=== PATIENT | female | born 1970 | race Two or more races ===

== ENCOUNTER 2019-12-06 15:14 | Outpatient (REF) | payer OTHER, SELFPAY ==
--- NOTE | 2019-12-06 15:18 | MM_ITS ---
EXAMINATION: MM SCREENING DIGITAL BREAST TOMOSYNTHESIS, BILATERAL CLINICAL INFORMATION: Screening. Asymptomatic. Benign right ultrasound-guided biopsy 10/31/2017 (fibroadenoma). The lifetime risk of breast cancer based on the Tyrer-Cuzick Model is 9%. COMPARISON: Mammography: 11/30/2018, 10/31/2017, 10/17/2017, 12/04/2016 TECHNIQUE: Digital breast tomosynthesis is performed in both the craniocaudal and mediolateral oblique views along with computer-aided detection (CAD). Synthesized 2D images are generated from the tomosynthesis. FINDINGS: There are scattered areas of fibroglandular density (ACR BI-RADS breast composition Category b). Breast tissue composition borders on heterogeneously dense. There are scattered bilateral asymmetries and probable underlying fibrocystic changes similar to prior exams. Biopsy clip marker present anterior upper outer right breast. There is no significant mass or architectural abnormality, or abnormal calcifications. The axilla and skin contours are unremarkable. MM/MM tomosynthesis screening BI IMPRESSION: No significant changes from prior studies. ASSESSMENT: BI-RADS 2: Benign RECOMMENDATION: Routine annual mammography screening. This patient's information was entered into a reminder system with a target due date for their next mammogram.
== END 2019-12-06 15:15 | disposition home or self-care (01) ==
LOC: HO.MAMMO 15:14
PROVIDERS: PCP Internal Medicine; Visit Provider Internal Medicine
DX: Z12.31 Encounter for screening mammogram for malignant neoplasm of breast (principal)
CPT/HCPCS: 77063; 77067

== ENCOUNTER 2019-12-28 12:56 | Outpatient (REF) | payer OTHER, SELFPAY ==
[2019-12-28 13:30] LABS: MANUAL DIFF FLAG NO
[2019-12-28 13:34] LABS: Basophils Percent Auto 0.5 % (0-2); Eosinophils Absolute Auto 0.1 X10*3/uL (0.0-0.4); Eosinophils Percent Auto 1.9 % (0-4); Hematocrit 37.7 % (37-47); Hemoglobin 12.4 g/dl (12.0-16.0); Imm Gran Abs Auto 0.02 X10*3/uL (0.00-0.03); Imm Gran Pct Auto 0.3 % (0.0-0.4); Lymphocytes Absolute Auto 1.7 X10*3/uL (1.2-4.9); Lymphocytes Percent Auto 26.8 % (20-40); Mean Corpuscular HGB Conc 32.9 g/dl (31.0-35.0); Mean Corpuscular Hemoglobin 28.5 pg (27.0-33.0); Mean Corpuscular Volume 86.7 fL (80-98); Mean Platelet Volume 8.6 fL (9.4-12.3); Monocytes Absolute Auto 0.4 X10*3/uL (0.1-1.2); Monocytes Percent Auto 5.8 % (2-11); Neutrophils Percent Auto 64.7 % (45-73); Platelet Count 307 X10*3/uL (160-400); Red Blood Count 4.35 X10*6/uL (4.20-5.50); Red Cell Distribution Width 12.1 % (11.0-16.0); White Blood Count 6.2 X10*3/uL (4.8-10.8)
[2019-12-28 14:20] LABS: Alanine Aminotransferase 19 U/L (0-31); Albumin Level 4.3 g/dL (3.5-5.0); Alkaline Phosphatase 51 U/L (39-117); Anion Gap 12 (12-20); Aspartate Amino Transferase 21 U/L (5-31); Bilirubin Total 0.9 mg/dL (0.0-1.0); Blood Urea Nitrogen 9 mg/dL (9-16); Calcium 8.7 mg/dL (8.4-10.2); Carbon Dioxide 27 mmol/L (22-29); Chloride 103 mmol/L (96-108); Cholesterol 179 mg/dL; Estimated Glomerular Filt Rate > 60; Glucose Fasting 75 mg/dL (60-99); HDL Cholesterol 47 mg/dL; LDL Cholesterol Calculated 117 mg/dl; Sodium 138 mmol/L (135-145); Total Protein 7.3 g/dL (6.5-8.0); Triglycerides 75 mg/dL
[2019-12-28 14:23] LABS: TSH reflex Free T4 1.04 mIU/mL (0.32-4.0); Vitamin D 25-OH Total 8.4 ng/mL (>30)
[2019-12-28 15:12] LABS: Folate 12.5 ng/mL (> or = 4.0); Vitamin B12 779 pg/mL (200-900)
== END 2019-12-28 12:57 | disposition home or self-care (01) ==
LOC: HO.LAB 12:56
PROVIDERS: PCP Internal Medicine; Visit Provider Internal Medicine
DX: R00.0 Tachycardia, unspecified (principal); R53.82 Chronic fatigue, unspecified
CPT/HCPCS: 36415; 80053; 80061; 82306; 82607; 82746; 84443; 85025

== ENCOUNTER 2020-01-25 17:15 | Outpatient (REF) | payer OTHER, SELFPAY | END 2020-01-25 17:16 | disposition home or self-care (01) | LOC: HO.LAB 17:15 | PROVIDERS: PCP Internal Medicine; Visit Provider Internal Medicine | DX: Z20.828 Contact with and (suspected) exposure to other viral communicable diseases (principal) | CPT/HCPCS: C9803; U0003 ==

== ENCOUNTER 2020-12-13 12:11 | Outpatient (REF) | payer OTHER, SELFPAY ==
--- NOTE | ~2020-12-13 | MM_ITS ---
EXAMINATION: MM SCREENING DIGITAL BREAST TOMOSYNTHESIS, BILATERAL CLINICAL INFORMATION: Screening. Asymptomatic. Right breast biopsy 2018 (fibroadenoma). Prior remote bilateral reduction mammoplasty, 2004. The lifetime risk of breast cancer based on the Tyrer-Cuzick Model is 16%. COMPARISON: Mammography: 12/06/2019, 11/30/2018, 10/31/2017, 10/17/2017, targeted left breast ultrasound 12/11/2018 TECHNIQUE: Digital breast tomosynthesis is performed in both the craniocaudal and mediolateral oblique views along with computer-aided detection (CAD). Synthesized 2D images are generated from the tomosynthesis. FINDINGS: There are scattered areas of fibroglandular density (ACR BI-RADS breast composition Category b). Breast tissue composition borders on heterogeneously dense. Parenchymal pattern is similar to prior studies. There is biopsy clip marker again seen mid upper outer right breast. There are interval benign tightly grouped coarse calcifications mid upper outer left breast. Some fine vascular calcifications again seen anterior right breast. Skin contours are smooth. No significant changes. MM/MM tomosynthesis screening BI IMPRESSION: No mammographic evidence of malignancy. ASSESSMENT: BI-RADS 2: Benign RECOMMENDATION: Routine annual mammography screening. This patient's information was entered into a reminder system with a target due date for their next mammogram.
== END 2020-12-13 12:12 | disposition home or self-care (01) ==
LOC: HO.MAMMO 12:11
PROVIDERS: PCP Internal Medicine; Visit Provider Internal Medicine
DX: Z12.31 Encounter for screening mammogram for malignant neoplasm of breast (principal)
CPT/HCPCS: 77063; 77067

== ENCOUNTER 2020-12-19 06:23 | Outpatient (REF) | payer OTHER, SELFPAY ==
[2020-12-19 06:36] LABS: MANUAL DIFF FLAG NO
--- NOTE | 2020-12-19 06:41 | ECG_ITS ---
Test Reason : pre op Blood Pressure : / mmHG Vent. Rate : 063 BPM Atrial Rate : 063 BPM P-R Int : 160 ms QRS Dur : 078 ms QT Int : 410 ms P-R-T Axes : 039 011 018 degrees QTc Int : 419 ms Normal sinus rhythm Normal ECG No significant changes seen Referred By: Raine Mia Electronically Signed By:KEY HARLEY MD
[2020-12-19 07:28] LABS: Basophils Percent Auto 0.9 % (0-2); Eosinophils Absolute Auto 0.1 X10*3/uL (0.0-0.4); Eosinophils Percent Auto 3.3 % (0-4); Hematocrit 40.6 % (37.0-47.0); Hemoglobin 13.7 g/dl (12.0-16.0); Imm Gran Abs Auto 0.01 X10*3/uL (0.00-0.03); Imm Gran Pct Auto 0.2 % (0.0-0.4); Lymphocytes Absolute Auto 1.6 X10*3/uL (1.2-4.9); Lymphocytes Percent Auto 38.2 % (20-40); Mean Corpuscular HGB Conc 33.7 g/dl (31.0-35.0); Mean Corpuscular Hemoglobin 29.3 pg (27.0-33.0); Mean Corpuscular Volume 86.9 fL (80.0-98.0); Mean Platelet Volume 9.4 fL (9.4-12.3); Monocytes Absolute Auto 0.3 X10*3/uL (0.1-1.2); Monocytes Percent Auto 5.9 % (2-11); Neutrophils Absolute Auto 2.2 x10*3/uL (2.0-8.3); Neutrophils Percent Auto 51.5 % (45-73); Platelet Count 266 X10*3/uL (160-400); Red Blood Count 4.67 X10*6/uL (4.20-5.50); Red Cell Distribution Width 12.3 % (11.0-16.0); White Blood Count 4.2 X10*3/uL (4.8-10.8)
[2020-12-19 07:38] LABS: INTERNATIONAL NORM RATIO 1.1 (0.9-1.1); Prothrombin Time 12.2 SEC (9.9-13.0)
[2020-12-19 07:41] LABS: Partial Thromboplastin Time 32.5 SEC (24.1-38.0)
[2020-12-19 08:15] LABS: Alanine Aminotransferase 20 U/L (0-31); Albumin Level 4.3 g/dL (3.5-5.0); Alkaline Phosphatase 54 U/L (39-117); Anion Gap 9 (12-20); Aspartate Amino Transferase 20 U/L (5-31); Bilirubin Total 0.7 mg/dL (0.0-1.0); Blood Urea Nitrogen 10 mg/dL (9-16); Calcium 9.5 mg/dL (8.4-10.2); Carbon Dioxide 30 mmol/L (22-29); Chloride 103 mmol/L (96-108); Cholesterol 207 mg/dL; Estimated Glomerular Filt Rate > 60; Glucose Fasting 84 mg/dL (60-99); HDL Cholesterol 46 mg/dL; LDL Cholesterol Calculated 129 mg/dl; Sodium 138 mmol/L (135-145); Total Protein 7.7 g/dL (6.5-8.0); Triglycerides 164 mg/dL
[2020-12-19 08:17] LABS: Estimated Average Glucose 100 mg/dL; Hemoglobin A1c % 5.1 %
[2020-12-19 08:22] LABS: HCG Quantitative < 2 mIU/mL; Thyroid Stimulating Hormone 2.33 uIU/mL (0.32-4.0)
[2020-12-19 09:06] LABS: Appearance Urine CLEAR; Color Urine STRAW; Glucose Urine UA NEG (NEG); Leukocyte Esterase Urine NEG (NEG); Nitrite Urine NEG (NEG); PH 5.5 (5.0-8.0); Urine Blood NEG (NEG); Urine Ketones NEG (NEG); Urine Protein NEG (NEG-TRACE)
[2020-12-20 09:10] LABS: HIV AB/AG Nonreactive (Nonreactive); HIV Num 1 0.07 S/CO (0.00-0.99)
[2020-12-23 14:51] LABS: Vitamin D 25-OH, D2 <4 ng/mL; Vitamin D 25-OH, D3 20 ng/mL; Vitamin D 25-OH, Total 20 ng/mL (30-100)
== END 2020-12-19 06:24 | disposition home or self-care (01) ==
LOC: HO.LAB 06:23
PROVIDERS: PCP Internal Medicine; Visit Provider Internal Medicine
DX: Z01.818 Encounter for other preprocedural examination (principal); Z11.4 Encounter for screening for human immunodeficiency virus [HIV]; E66.3 Overweight; D64.9 Anemia, unspecified; E78.5 Hyperlipidemia, unspecified; E55.9 Vitamin D deficiency, unspecified; E11.40 Type 2 diabetes mellitus with diabetic neuropathy, unspecified
CPT/HCPCS: 36415; 80053; 80061; 81003; 82306; 83036; 84443; 84702; 85025; 85610; 85730; 87389; 93005

== ENCOUNTER 2020-12-27 05:57 | Outpatient (REF) | payer OTHER, SELFPAY ==
[2020-12-27 06:07] LABS: MANUAL DIFF FLAG NO
[2020-12-27 07:19] LABS: Basophils Percent Auto 0.6 % (0-2); Eosinophils Absolute Auto 0.1 X10*3/uL (0.0-0.4); Eosinophils Percent Auto 2.5 % (0-4); Hematocrit 38.8 % (37.0-47.0); Hemoglobin 13.1 g/dl (12.0-16.0); Imm Gran Abs Auto 0.01 X10*3/uL (0.00-0.03); Imm Gran Pct Auto 0.2 % (0.0-0.4); Lymphocytes Absolute Auto 1.7 X10*3/uL (1.2-4.9); Lymphocytes Percent Auto 34.6 % (20-40); Mean Corpuscular HGB Conc 33.8 g/dl (31.0-35.0); Mean Corpuscular Hemoglobin 29.3 pg (27.0-33.0); Mean Corpuscular Volume 86.8 fL (80.0-98.0); Mean Platelet Volume 8.8 fL (9.4-12.3); Monocytes Absolute Auto 0.3 X10*3/uL (0.1-1.2); Monocytes Percent Auto 7.1 % (2-11); Neutrophils Absolute Auto 2.6 x10*3/uL (2.0-8.3); Platelet Count 307 X10*3/uL (160-400); Red Blood Count 4.47 X10*6/uL (4.20-5.50); Red Cell Distribution Width 12.1 % (11.0-16.0); White Blood Count 4.8 X10*3/uL (4.8-10.8)
[2020-12-27 07:49] LABS: Alanine Aminotransferase 26 U/L (0-31); Albumin Level 4.4 g/dL (3.5-5.0); Alkaline Phosphatase 58 U/L (39-117); Anion Gap 9 (12-20); Aspartate Amino Transferase 23 U/L (5-31); Bilirubin Total 0.9 mg/dL (0.0-1.0); Blood Urea Nitrogen 10 mg/dL (9-16); Calcium 9.6 mg/dL (8.4-10.2); Carbon Dioxide 31 mmol/L (22-29); Chloride 102 mmol/L (96-108); Estimated Glomerular Filt Rate > 60; Glucose Fasting 90 mg/dL (60-99); Potassium 4.3 mmol/L (3.3-5.1); Sodium 138 mmol/L (135-145); Total Protein 7.5 g/dL (6.5-8.0)
== END 2020-12-27 05:58 | disposition home or self-care (01) ==
LOC: HO.LAB 05:57
PROVIDERS: PCP Internal Medicine; Visit Provider Internal Medicine
DX: Z13.89 Encounter for screening for other disorder (principal)
CPT/HCPCS: 36415; 80053; 85025

== ENCOUNTER 2021-05-03 12:40 | Emergency (ER) | payer OTHER, SELFPAY ==
[2021-05-03 13:00] VITALS: BP 104/69; PULSE 85; RESP 18; TEMP 37.1; O2SAT 97; BMI 28.3
[2021-05-03 16:14] LABS: MANUAL DIFF FLAG NO
[2021-05-03 16:16] LABS: Appearance Urine CLEAR; Color Urine YELLOW; Glucose Urine UA NEG (NEG); Leukocyte Esterase Urine NEG (NEG); Nitrite Urine NEG (NEG); Specific Gravity - Urine 1.015 (1.005-1.025); UACC Culture Trigger NO; Urine Blood 2+ (NEG); Urine Ketones 5 MG/DL (NEG); Urine Protein NEG (NEG-TRACE)
[2021-05-03 16:20] LABS: Basophils Percent Auto 0.4 % (0-2); Eosinophils Absolute Auto 0.1 X10*3/uL (0.0-0.4); Eosinophils Percent Auto 1.7 % (0-4); Hematocrit 41.2 % (37.0-47.0); Hemoglobin 13.4 g/dl (12.0-16.0); Imm Gran Abs Auto 0.01 X10*3/uL (0.00-0.03); Imm Gran Pct Auto 0.2 % (0.0-0.4); Lymphocytes Absolute Auto 1.1 X10*3/uL (1.2-4.9); Lymphocytes Percent Auto 21.2 % (20-40); Mean Corpuscular HGB Conc 32.5 g/dl (31.0-35.0); Mean Corpuscular Hemoglobin 26.9 pg (27.0-33.0); Mean Corpuscular Volume 82.7 fL (80.0-98.0); Mean Platelet Volume 8.4 fL (9.4-12.3); Monocytes Absolute Auto 0.4 X10*3/uL (0.1-1.2); Monocytes Percent Auto 7.5 % (2-11); Neutrophils Absolute Auto 3.6 x10*3/uL (2.0-8.3); Platelet Count 300 X10*3/uL (160-400); Red Blood Count 4.98 X10*6/uL (4.20-5.50); Red Cell Distribution Width 12.9 % (11.0-16.0); White Blood Count 5.2 X10*3/uL (4.8-10.8)
[2021-05-03 16:29] LABS: Anion Gap 12 (12-20); Blood Urea Nitrogen 14 mg/dL (9-16); Calcium 9.1 mg/dL (8.4-10.2); Carbon Dioxide 29 mmol/L (22-29); Chloride 100 mmol/L (96-108); Creatinine Clr Calc Pharmacy 84.2; Estimated Glomerular Filt Rate > 60; Glucose Random 75 mg/dL (60-115); Potassium 3.5 mmol/L (3.3-5.1); Sodium 137 mmol/L (135-145)
[2021-05-03 16:31] LABS: COVID-19 Test Negative (Negative)
[2021-05-03 16:41] LABS: Bacteria Urine TRACE /LPF; RBC Urine 0-2 /HPF (0); Squamous Epithelial Cell Urine TRACE /LPF; WBC Urine 0 /HPF (0-4)
--- NOTE | 2021-05-03 16:51 | ED_ITS ---
HPI - General Adult General Chief complaint: Nausea/Vomiting/Diarrhea Stated complaint: Vomiting, Abdominal Pain, Chills Time Seen by Provider: 05/03/21 16:38 Source: patient Limitations: no limitations History of Present Illness HPI narrative: This is a 50-year-old female who complains of vomiting since last night but the patient denies any diarrhea. She has some upper abdominal pain. She denies any alcohol use. She denies fever. She has not had any chest pain or shortness of breath. She denies any difficulty with urination, dysuria, urinary frequency. She has been able to hold down some fluids today but no food. Related Data Home Medications Medication Instructions Recorded Confirmed clonidine HCl 0.1 mg tablet mg PO 01/03/20 12/20/20 cyclobenzaprine 10 mg tablet 10 mg PO BEDTIME 01/03/20 12/20/20 risperidone 1 mg tablet 1 mg PO BEDTIME 01/03/20 12/20/20 Previous Rx's Medication Instructions Recorded topiramate 50 mg tablet 50 mg PO BEDTIME 90 Days #90 tab 11/13/20 oxycodone-acetaminophen 5 mg-325 1 tab PO Q8H PRN 7 Days #21 tab 12/20/20 mg tablet (Percocet) ondansetron HCl 4 mg tablet 4 mg PO Q6H PRN #10 tab 05/03/21 Allergies Allergy/AdvReac Type Severity Reaction Status Date / Time aspirin [Aspirin] Allergy Intermediate HIVES, Verified 12/20/20 15:35 rash, swelling, SOB NSAIDS (Non-Steroidal Allergy Intermediate rash and Verified 12/20/20 15:35 Anti-Inflamma facial swelling Review of Systems Review of Systems: Yes all other systems are reviewed and are negative Constitutional: Constitutional: Reports as per HPI and Denies fever(s) Eyes: Eyes: Reports as per HPI and Reports no additional eye complaints ENT: Reports system reviewed and no additional complaints, except as documented, Reports as per HPI, Denies nasal congestion, Denies nasal discharge and Denies sore throat Cardiovascular: Cardiovascular: Reports as per HPI, Denies chest pain and Denies dyspnea Respiratory: Respiratory: Reports as per HPI, Denies cough and Denies dyspnea Gastrointestinal: Gastrointestinal: Reports as per HPI, Reports abdominal pain, Denies diarrhea, Reports nausea and Reports vomiting Genitourinary: Genitourinary: Reports as per HPI, Denies hematuria, Denies urinary frequency and Denies dysuria Musculoskeletal: Musculoskeletal: Reports no additional musculoskeletal complaints and Denies numbness Integumentary/Breasts: Skin/Breast: Reports as per HPI and Denies rash Neurologic: Reports as per HPI, Denies focal weakness and Denies numbness Psychiatric: Psychiatric: Reports no additional psychiatric complaints and Reports as per HPI Endocrine: Endocrine: Reports no additional endocrine complaints and Reports as per HPI Hematologic/Lymphatic: Hematologic/Lymphatic: Reports no additional hematolog ic/lymphatic complaints, Reports as per HPI and Reports other (No peripheral edema) [facility] Past Medical History Medical History (Updated 05/04/21 @ 00:03 by Background Faina) Anxiety Blurry vision Insomnia Migraines Mild recurrent major depression Overweight Pre-op evaluation Surgical History H/O bilateral breast reduction surgery History of abdominoplasty History of section History of foot surgery History of hysterectomy Family History Family History Father No problems noted. Mother Diabetes Hypertension Paternal Grandmother Cancer Paternal Aunt Cancer Paternal Uncle Cancer Social History Social History Housing: Apartment Alcohol intake: never Patient Tobacco Use Status: Never used Tobacco e-Cigarette/Vaping Use: Never Used Second Hand Smoke Exposure: No Use of substances other than those prescribed or required for medical reasons: No Advance Directives: No Advance Directives Information Provided: No service: No Current occupational status: unemployed Physical Exam ED Vital Signs: Vital Signs - 24 hr 05/03/21 13:00 05/03/21 17:12 Temperature 98.8 F 97.7 F Pulse Rate 85 67 Respiratory Rate 18 Blood Pressure 104/69 116/62 Pulse Oximetry 97 95 BMI result Body Mass Index 28.3 Const General: no acute distress Orientation/consciousness: patient oriented x3 HENMT Head: Yes normal to inspection General nose exam: Normal external nose present Mouth: moist mucous membranes Throat: Yes posterior oropharynx normal, Yes tonsils normal and Yes uvula midline Eyes Eyelids: Yes eyelids normal Conjunctivae: conjunctivae normal Pupils: Equal, round and reactive pupils present Neck Neck: Yes supple Resp Effort & Inspection: normal respiratory effort Auscultation: clear to auscultation bilaterally Cardio Rate: regular rate Rhythm: regular rhythm Heart sounds: S1 normal heart sound present, S2 normal heart sound present, no gallops, no murmurs and no rubs GI Inspection: No distended Palpation (GI): Soft to palpation and Tenderness to palpation present (GI) in the epigastrum Auscultation: normal bowel sounds Skin General skin exam: other (Warm and dry) Neuro General: patient oriented x3 and CN's II-XI intact bilaterally Cranial nerves: Yes Equal, round and reactive pupils present Extrem General: Yes no pedal edema Psych Affect: normal affect Attitude: cooperative Medical Decision Making MDM Narrative Medical decision making narrative: Patient with vomiting, but no diarrhea Patient was given Zofran in the ED and was able to hold down some fluids. Labs unremarkable with no evidence of dehydration. Patient is safe for outpatient treatment Lab Data Result diagrams: 05/03/21 16:06 05/03/21 16:06 Labs: Lab Results 05/03/21 05/03/21 05/03/21 Range/Units 16:06 16:06 16:06 WBC 5.2 (4.8-10.8) X10*3/uL RBC 4.98 (4.20-5.50) X10*6/uL Hgb 13.4 (12.0-16.0) g/dl Hct 41.2 (37.0-47.0) % MCV 82.7 (80.0-98.0) fL MCH 26.9 L (27.0-33.0) pg MCHC 32.5 (31.0-35.0) g/dl RDW 12.9 (11.0-16.0) % Plt Count 300 (160-400) X10*3/uL MPV 8.4 L (9.4-12.3) fL Immature Gran % (Auto) 0.2 (0.0-0.4) % Neut % (Auto) 69.0 (45-73) % Lymph % (Auto) 21.2 (20-40) % [place] % (Auto) 7.5 (2-11) % Eos % (Auto) 1.7 (0-4) % Baso % (Auto) 0.4 (0-2) % Lymph # (Auto) 1.1 L (1.2-4.9) X10*3/uL Cowley # (Auto) 0.4 (0.1-1.2) X10*3/uL Eos # (Auto) 0.1 (0.0-0.4) X10*3/uL Baso # (Auto) 0.0 (0.0-0.2) X10*3/uL Abs Immat Gran (auto) 0.01 (0.00-0.03) X10*3/uL Absolute Neuts (auto) 3.6 (2.0-8.3) x10*3/uL Absolute Nucleated RBC 0.000 (0.0-0.012) X10*3/uL Nucleated RBC % (auto) 0.0 (0.0-0.2) /100WBC Sodium 137 (135-145) mmol/L Potassium 3.5 (3.3-5.1) mmol/L Chloride 100 (96-108) mmol/L Carbon Dioxide 29 (22-29) mmol/L Anion Gap 12 (12-20) BUN 14 (9-16) mg/dL Creatinine 0.75 (0.5-1.4) mg/dL Estim Creat Clear Calc 84.2 Estimated GFR > 60 Random Glucose 75 (60-115) mg/dL Calcium 9.1 (8.4-10.2) mg/dL Lipase (8-78) U/L Urine Color Urine Appearance Urine pH (5.0-8.0) Ur Specific [place] (1.005-1.025) Urine Protein (NEG-TRACE) MG/DL Urine Glucose (UA) (NEG) MG/DL Urine Ketones (NEG) MG/DL Urine Blood (NEG) Urine Nitrite (NEG) Ur Leukocyte Esterase (NEG) Urine RBC (0) /HPF Urine WBC (0-4) /HPF Ur Squamous Epith Cells /LPF Urine Bacteria /LPF COVID-19 ([facility]) Negative (Negative) COVID-19 Clin Com See Note 05/03/21 05/03/21 Range/Units 16:08 17:10 WBC (4.8-10.8) X10*3/uL RBC (4.20-5.50) X10*6/uL Hgb (12.0-16.0) g/dl Hct (37.0-47.0) % MCV (80.0-98.0) fL MCH (27.0-33.0) pg MCHC (31.0-35.0) g/dl RDW (11.0-16.0) % Plt Count (160-400) X10*3/uL MPV (9.4-12.3) fL Immature Gran % (Auto) (0.0-0.4) % Neut % (Auto) (45-73) % Lymph % (Auto) (20-40) % Cow[place] % (Auto) (2-11) % Eos % (Auto) (0-4) % Baso % (Auto) (0-2) % Lymph # (Auto) (1.2-4.9) X10*3/uL [place] # (Auto) (0.1-1.2) X10*3/uL Eos # (Auto) (0.0-0.4) X10*3/uL Baso # (Auto) (0.0-0.2) X10*3/uL Abs Immat Gran (auto) (0.00-0.03) X10*3/uL Absolute Neuts (auto) (2.0-8.3) x10*3/uL Absolute Nucleated RBC (0.0-0.012) X10*3/uL Nucleated RBC % (auto) (0.0-0.2) /100WBC Sodium (135-145) mmol/L Potassium (3.3-5.1) mmol/L Chloride (96-108) mmol/L Carbon Dioxide (22-29) mmol/L Anion Gap (12-20) BUN (9-16) mg/dL Creatinine (0.5-1.4) mg/dL Estim Creat Clear Calc Estimated GFR Random Glucose (60-115) mg/dL Calcium (8.4-10.2) mg/dL Lipase 39 (8-78) U/L Urine Color YELLOW Urine Appearance CLEAR Urine pH 6.0 (5.0-8.0) Ur Specific [place] 1.015 (1.005-1.025) Urine Protein NEG (NEG-TRACE) MG/DL Urine Glucose (UA) NEG (NEG) MG/DL Urine Ketones 5 (NEG) MG/DL Urine Blood 2+ H (NEG) Urine Nitrite NEG (NEG) Ur Leukocyte Esterase NEG (NEG) Urine RBC 0-2 (0) /HPF Urine WBC 0 (0-4) /HPF Ur Squamous Epith Cells TRACE /LPF Urine Bacteria TRACE /LPF COVID-19 ([facility]) (Negative) COVID-19 Clin Com Discharge Plan Discharge Clinical Impression: Vomiting Patient Disposition: Home, Self-Care Instructions: Acute Nausea and Vomiting (ED) Additional Instructions: Drink clear liquids the little at a time. Use ondansetron as prescribed for nausea. Return for any new or worsened symptoms such as progressive abdominal pain, fever, inability to hold down fluids, not making urine for over 10 hours. Prescriptions: New ondansetron HCl 4 mg tablet 4 mg PO Q6H PRN (Reason: nausea and vomiting) Qty: 10 0RF No Action risperidone 1 mg tablet 1 mg PO BEDTIME 0RF clonidine HCl 0.1 mg tablet PO 0RF cyclobenzaprine 10 mg tablet 10 mg PO BEDTIME 0RF topiramate 50 mg tablet 50 mg PO BEDTIME 90 Days Qty: 90 1RF oxycodone-acetaminophen [Percocet] 5-325 mg tablet 1 tab PO Q8H PRN (Reason: pain) 7 Days Qty: 21 0RF Interventions: ED Discharge Assessment Last Done: 05/03/21 17:52 Discharge Date/Time: 05/03/21 17:52
[2021-05-03 17:12] VITALS: BP 116/62; PULSE 67; TEMP 36.5; O2SAT 95
[2021-05-03] MEDS: Ondansetron ODT 4 MG TAB.RAPDIS TRANSLINGU (17:22)
[2021-05-03 17:34] LABS: Lipase 39 U/L (8-78)
== END 2021-05-03 17:52 | disposition home or self-care (01) ==
PROVIDERS: Emergency Provider Emergency Medicine; PCP Internal Medicine
DX: R11.2 Nausea with vomiting, unspecified (principal); Z20.822 Contact with and (suspected) exposure to COVID-19; R10.10 Upper abdominal pain, unspecified
CPT/HCPCS: 36415; 80048; 81001; 83690; 85025; 87635; 99283; 99284

== ENCOUNTER 2022-08-18 19:46 | Emergency (ER) | payer OTHER, SELFPAY ==
[2022-08-18 20:14] VITALS: BP 143/78; PULSE 87; RESP 17; TEMP 37.1; O2SAT 99
[2022-08-18 23:16] VITALS: BP 127/69; PULSE 67; RESP 16; TEMP 36.6; O2SAT 100
--- NOTE | 2022-08-19 00:08 | ED.BACK ---
HPI - Back Pain/Injury General Chief Complaint: Back Pain/Injury Stated Complaint: Lower back pain Time Seen by Provider: 08/18/22 23:55 Source: patient Mode of arrival: ambulatory Limitations: no limitations History of Present Illness HPI Narrative: 52-year-old female who presents emergency department for evaluation of lower back pain radiating to her right thigh. Patient states that on 08/17/2022 she was kayaking her several hours. She does not recount any injury. When she woke up on Friday, she had severe pain in her lower back pain. Pain was worse on the right than on the left. Pain does radiate to her right thigh. Patient states she is having trouble moving, walking twisting secondary to her pain. She went to an urgent care clinic and was prescribed Flexeril she states she took 1 dose of Flexeril with no relief for pain. She is currently complaining of severe, constant, lower back pain and right thigh pain which is 10/10. Patient has been taking Tylenol with no relief. She is allergic to aspirin and NSAIDs-these medications cause rashes. Related Data Home Medications Medication Instructions Recorded Confirmed clonidine HCl 0.1 mg tablet mg PO 01/03/20 07/10/21 risperidone 1 mg tablet 1 mg PO BEDTIME 01/03/20 07/10/21 Previous Rx's Medication Instructions Recorded topiramate 50 mg tablet 50 mg PO BEDTIME 90 days #90 tabs 05/21/21 cyclobenzaprine 10 mg tablet 10 mg PO BEDTIME #14 tabs 08/17/22 morphine 15 mg immediate release 15 mg PO Q4-6H PRN pain #10 tabs 08/19/22 tablet prednisone 20 mg tablet 60 mg PO DAILY 7 days #21 tabs 08/19/22 Allergies Allergy/AdvReac Type Severity Reaction Status Date / Time aspirin [Aspirin] Allergy Intermediate HIVES, Verified 08/18/22 23:19 rash, swelling, SOB NSAIDS (Non-Steroidal Allergy Intermediate rash and Verified 08/18/22 23:19 Anti-Inflamma facial swelling Review of Systems Review of Systems: Yes all other systems are reviewed and are negative [facility]LY [facility] Past Medical History [facility] Narrative: Social history: She denies tobacco, alcohol and drug use. Specifically, she states she does not use injection drugs. Medical History (Updated 08/19/22 @ 00:11 by Chacorta Juan MD) Anxiety Blurry vision Insomnia Migraines Mild recurrent major depression Overweight Physical exam Pre-op evaluation Surgical History H/O bilateral breast reduction surgery History of abdominoplasty History of section History of foot surgery History of hysterectomy Family History Family History Father No problems noted. Mother Diabetes Hypertension Paternal Grandmother Cancer Paternal Aunt Cancer Paternal Uncle Cancer Social History Social History (Updated 07/10/21 @ 16:23 by Raine Mai MD) Housing: Apartment Alcohol intake: never Patient Tobacco Use Status: Never used Tobacco e-Cigarette/Vaping Use: Never Used Second Hand Smoke Exposure: No Advance Directives: No Advance Directives Information Provided: No service: No Current occupational status: unemployed Cognitive needs: No Hearing needs: No Vision needs: No Physical Exam Vital Signs: Vital Signs: Last Vital Signs Temp 97.9 F 08/18/22 23:16 Pulse 67 08/18/22 23:16 Resp 16 08/18/22 23:16 BP 127/69 08/18/22 23:16 Pulse Ox 100 08/18/22 23:16 O2 Del Method Room Air 08/18/22 23:16 BMI result Body Mass Index 30.0 Const: General: cooperative and no acute distress Orientation/consciousness: oriented to person and oriented to place Limitations: no limitations HEENT: Head: Yes normal to inspection, Yes normocephalic and Yes atraumatic Ears: external ears normal General nose exam: Normal external nose present Face and sinus: Yes normal facial exam Mouth: Normal oral and palatal mucosa present Throat: Yes posterior oropharynx normal Eyes: General: appearance normal, both eyes and all related structures Pupils: Equal, round and reactive pupils present Neck: Neck: Yes normal visual inspection, Yes no lymphadenopathy, Yes trachea midline and Yes supple Chest: Chest palpation & inspection: normal inspection of the chest and normal palpation of entire chest wall Resp: Effort & Inspection: normal respiratory effort and able to speak in complete sentences Auscultation: clear to auscultation bilaterally Cardio: Rate: regular rate Rhythm: regular rhythm Heart sounds: S1 normal heart sound present, S2 normal heart sound present and no murmurs GI: Inspection: Yes normal to inspection Palpation (GI): Soft to palpation, nontender and no guarding Auscultation: normal bowel sounds Back/Spine/Pelvis: Other: Patient has moderate to severe tenderness palpation of her paraspinal muscles in the right lumbar sacral area, there is mild tenderness palpation of her left paraspinal muscles in lumbar sacral area. The patient has positive right straight leg raise with significant increase in her pain. Patient has no point vertebral tenderness. There is no increased erythema or warmth over the scan of her lumbar sacral back. No rash or lesions noted. Skin: General skin exam: no rashes or lesions noted Neuro: General: oriented to person and oriented to place Cranial nerves: Yes CN's II-XII intact bilaterally and Yes Equal, round and reactive pupils present Cognition (Neuro): normal cognition Motor exam (neuro): Other motor observations present ( strength is symmetric however , difficulty moving right leg 2nd to pain) Extrem: General: Yes normal to inspection Psych: Appearance: grossly normal Speech and movement: Normal speech and movement present Affect: normal affect Attitude: cooperative Medical Decision Making Medical Decision Making MDM Narrative: 52-year-old female who presents emergency department for evaluation lower back pain with pain radiating to her right thigh. Patient did go kayaking 2 days prior and woke up the next day with severe pain in her lower back. Patient was seen in urgent care clinic and given Flexeril with no improvement her pain. Patient denied injection drugs and had no systemic symptoms. Exam did reveal significant tenderness palpation of the paraspinal muscles in the right lumbar sacral area with positive right straight leg raise. Patient's presentation is consistent with lower back strain right greater than left with sciatica. Patient was started on prednisone 60 mg once a day x7 days. She was advised to continue taking Flexeril and Tylenol and for pain not relieved by these medications she was prescribed morphine 15 mg every 4-6 hours as needed for pain. She was advised to ice her lower back for 15 minutes 4 to 6 times a day for the next 3 days. She was given printed and verbal instructions discharged home. Differential Diagnosis Differential diagnosis includes was not limited to lumbar sacral musculoskeletal strain, sciatica, disc disease, paraspinal abscess Admission/Observation Consideration of admission/observation: Escalation of care including admission/observation considered External Record Review External record reviewed: Other [place] prescription monitoring program-1 Rx for Percocet within 1 year. Discharge Plan Discharge Clinical Impression: Sciatica Qualifiers: Laterality: right Qualified Code(s): M54.31 - Sciatica, right side Lumbar back sprain Qualifiers: Encounter type: initial encounter Qualified Code(s): S33.5XXA - Sprain of ligaments of lumbar spine, initial encounter Patient Disposition: Home, Self-Care Instructions: Sciatica (ED), Acute Low Back Pain (ED) Additional Instructions: Your examination revealed tenderness with pushing on the muscles of the right lower back which is consistent with a muscle strain. Your pain is also worse with lifting your right leg which is consistent with inflammation of the sciatic nerve. Take prednisone 20 mg pills, 3 pills once a day for 7 days. While you are taking prednisone, do not take any NSAIDs (Motrin, Advil, ibuprofen, Aleve, naproxen). Take ibuprofen 200 mg pills, 3 pills every 6 hours as needed for pain. Take Tylenol (acetaminophen) 2 pills every 4-6 hours as needed for pain. For pain not relieved by prednisone or Tylenol take morphine 15 mg pills, 1 pill every 4 hours as needed for pain. This medication will make you sleepy, do not drive or work while taking this medication. Morphine is a narcotic medication and can be addicting. If you are concerned about addiction you can ask the pharmacist for less pills or do not get this prescription filled. Apply ice to your lower back for 15 minutes 4 to 6 times a day for the next 3 days. This will reduce the inflammation in your muscles and help reduce your pain. Continue taking Flexeril (cyclobenzaprine) as prescribed by the urgent care provider. Follow-up with your doctor in 2 days. Please return to the emergency department if your symptoms get worse or if you develop any symptoms that are concerning to you. Prescriptions: New prednisone 20 mg tablet 60 mg PO DAILY 7 Days Qty: 21 0RF morphine 15 mg tablet 15 mg PO Q4-6H PRN (Reason: pain) Qty: 10 0RF Rx Instructions: The patient may ask for partial fill; Partial Fill upon patient request. No Action topiramate 50 mg tablet 50 mg PO BEDTIME 90 Days Qty: 90 1RF risperidone 1 mg tablet 1 mg PO BEDTIME clonidine HCl 0.1 mg tablet PO cyclobenzaprine 10 mg tablet 10 mg PO BEDTIME Qty: 14 0RF Print Language: Chinese
== END 2022-08-19 01:12 | disposition home or self-care (01) ==
PROVIDERS: Emergency Provider Emergency Medicine Emergency Medical Services; PCP Internal Medicine
DX: M54.41 Lumbago with sciatica, right side (principal); M79.604 Pain in right leg; Z79.899 Other long term (current) drug therapy
CPT/HCPCS: 99283; 99284

== ENCOUNTER 2022-11-20 12:54 | Outpatient (REF) | payer OTHER, SELFPAY ==
--- NOTE | ~2022-11-20 | MM_ITS ---
EXAMINATION: MM SCREENING DIGITAL BREAST TOMOSYNTHESIS, BILATERAL CLINICAL INFORMATION: Screening. Asymptomatic. COMPARISON: Mammography: This study is compared with prior exams dating back to 2019. TECHNIQUE: Digital breast tomosynthesis is performed in both the craniocaudal and mediolateral oblique views along with computer-aided detection (CAD). Synthesized 2D images are generated from the tomosynthesis. FINDINGS: The breasts are heterogeneously dense, which may obscure small masses (ACR BI-RADS breast composition Category c). There are no significant masses, abnormal calcifications, or other abnormalities. There is tissue marker present in the right breast from prior benign percutaneous biopsy. MM/MM tomosynthesis screening BI IMPRESSION: No mammographic evidence of malignancy. ASSESSMENT: BI-RADS BI-RADS 2 - Benign Findings RECOMMENDATION: Routine annual mammography screening. 1 year F/U This examination should not preclude the clinical evaluation of a suspicious palpable abnormality. This patient's information was entered into a reminder system with a target due date for their next mammogram.
== END 2022-11-20 12:55 | disposition home or self-care (01) ==
LOC: HO.MAMMO 12:54
PROVIDERS: PCP Internal Medicine; Visit Provider Internal Medicine
DX: Z12.31 Encounter for screening mammogram for malignant neoplasm of breast (principal)
CPT/HCPCS: 77063; 77067

== ENCOUNTER → 2022-11-20 14:45 | Outpatient (BNV) | payer OTHER, SELFPAY | PROVIDERS: PCP Internal Medicine; Visit Provider Radiology Diagnostic Radiology | DX: Z12.31 Encounter for screening mammogram for malignant neoplasm of breast (principal) | CPT/HCPCS: 77063; 77067 ==

== ENCOUNTER 2022-11-25 12:25 | Outpatient (AMB) | payer OTHER, SELFPAY ==
--- NOTE | 2022-11-25 12:28 | A.OFFPC_ITS ---
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: No Accompanied by: Self / Same As Patient Allergies aspirin [Aspirin] Allergy (Intermediate, Verified 11/25/22 12:41) HIVES, rash, swelling, SOB NSAIDS (Non-Steroidal Anti-Inflamma Allergy (Intermediate, Verified 11/25/22 12:41) rash and facial swelling Medication List - Last Reconciled 11/25/22 by Raine Mai MD clonidine HCl mg PO cyclobenzaprine 10 mg PO BEDTIME risperidone 1 mg PO BEDTIME topiramate 50 mg PO BEDTIME 90 days Tobacco use date assessed: 11/25/22 Dental Screening Dental Screen Date: 11/25/22 Did you have a dental visit in the last 12 months?: No Did you have a dental problem in the last 6 months where you did not have access to dental care?: No Was dental information given to patient?: Patient has dentist HPI HPI Comments History of Present Illness Details This is a 52-year-old female with mild recurrent major depression, anxiety and insomnia that comes for her preop evaluation for mastopexy scheduled for 12/16/2022. Depression with anxiety and insomnia has been stable with medications and this is follow by Psychiatry and counseling. She denies any chest pain or shortness of breath. EKG and labs were review. By [facility] she has 0.4 % risk of cardiac complications. Patient is medically clear for surgery. [facility] Medical History Physical exam Mild recurrent major depression Insomnia Pre-op evaluation Blurry vision Overweight Anxiety Migraines Surgical History History of hysterectomy History of foot surgery History of abdominoplasty H/O bilateral breast reduction surgery History of section Family History Father No problems noted. Mother Diabetes Hypertension Paternal Grandmother Cancer Paternal Aunt Cancer Paternal Uncle Cancer Social History (Updated 11/25/22 @ 12:46 by Raine Mai MD) Housing: Apartment Alcohol intake: current Alcohol intake frequency: holidays/special occasions only Alcohol type: beer and wine Patient Tobacco Use Status: Never used Tobacco e-Cigarette/Vaping Use: Never Used Second Hand Smoke Exposure: No service: No Current occupational status: unemployed Cognitive needs: No Hearing needs: No Vision needs: No Questionnaire PHQ-9 Over the last 2 weeks, how often have you been bothered by any of the following problems? 1. Little interest or pleasure in doing things: not at all 2. Feeling down, depressed, or hopeless: not at all 3. Trouble falling or staying asleep, or sleeping too much: not at all 4. Feeling tired or having little energy: not at all 5. Poor appetite or overeating: not at all 6. Feeling bad about yourself - or that you are a failure or have let yourself or your family down: not at all 7. Trouble concentrating on things, such as reading the newspaper or watching television: not at all 8. Moving or speaking so slowly that other people could have noticed. Or the opposite - being so fidgety or restless that you have been moving around a lot more than usual: not at all 9. Thoughts that you would be better off or of hurting yourself in some way: not at all Total score: 0 Depression Screening Interpretation: Negative Depression Screening Done: Yes 46347 - PHQ-9 Billing: Yes Source: Developed by Drs. Keith Johnson, Beronica Ravi, Evaristo Pandey and colleagues, with an educational geo from [employer] Thrive Questionnaire Date Thrive assessed: 11/25/22 I am a: Patient What is your living situation today?: I have a steady place to live Within the past 12 months, did the food you bought not last and you didn't have the money to get more?: Never true Within the past 12 months, did you worry whether your food would run out before you got money to buy more?: Never true Do you have trouble paying for medicines?: No Do you have trouble getting transportation to medical appointments?: No Do you have trouble paying your heating and electricity bill?: No Do you have trouble taking care of your child, family member or friend?: No Do you have trouble with day-to-day activities such as bathing, preparing meals, shopping, managing finances, etc.?: No Are you currently unemployed and looking for a job?: No Are you interested in more education?: No Please select the resources that you would like help with: None Currently or been in a relationship where the following occur: no concerns reported AUDIT C Alcohol Use Questionnaire (AUDIT-C) 1. How often do you have a drink containing alcohol?: Monthly or less 2. How many drinks containing alcohol do you have on a typical day when you are drinking?: 1 or 2 3. How often do you have six or more drinks on one occasion?: Never Total Score: 1 YENNY-7 AMB Questionnaire YENNY-7 Date YENNY - 7 assessed: 11/25/22 Feeling nervous, anxious, or on edge: 0 = Not at all Not being able to stop or control worryin = Not at all Worrying too much about different things: 0 = Not at all Trouble relaxin = Not at all Being so restless that it is hard to sit still: 0 = Not at all Becoming easily annoyed or irritable: 0 = Not at all Feeling afraid as if something awful might happen: 0 = Not at all Total YENNY-7 score (0-4 normal; 5-9 mild; 10-14 moderate; 15-21 severe): 0 Source: Developed by Drs. Keith Johnson, Beronica Ravi, Evaristo Pandey and colleagues, with an educational geo from [employer] YENNY-7 Assessment Billing YENNY-7 Assessment Tool: YENNY-7 Assessment 49821 Review of Systems Const All systems reviewed & are unremarkable except as noted in HPI and below Eyes Reports no additional complaints, Denies change in vision and Denies other visual disturbances Card Denies chest pain at rest, Denies chest pain with activity, Denies edema, Denies irregular heart rhythm, Denies claudication, Denies dyspnea, Denies dyspnea on exertion, Denies orthopnea, Denies paroxysmal nocturnal dyspnea and Denies slow heart rate Resp Denies cough, Denies dyspnea and Denies dyspnea on exertion GI Denies abdominal pain, Denies change in bowel habits, Denies excessive flatus, Denies nausea and Denies vomiting Denies urinary incontinence, Denies urinary hesitancy and Denies urinary urgency Musc Denies atrophy, Denies deformity and Denies limited range of motion Skin/Breast Denies bleeding lesions, Denies changing lesions and Denies rash Physical exam (Primary Care) Vital Signs: Last Vital Signs Pulse 93 11/25/22 12:30 BP 118/80 11/25/22 12:30 Pulse Ox 98 11/25/22 12:30 Oxygen Delivery Method Room Air 11/25/22 12:30 BMI result Body Mass Index 29.4 Tobacco/Smoking Status: Tobacco use Status Tobacco use date assessed 11/25/22 11/25/22 12:40 Patient Tobacco Use Status Never used Tobacco 11/25/22 12:46 e-Cigarette/Vaping Use Never Used 11/25/22 12:46 PHQ-9: PHQ-9 Score PHQ-9: Total score 0 11/25/22 13:01 Depression Screening Interpretation: Negative Thrive Assessment: Date of Thrive Assessment Date Thrive assessed 11/25/22 11/25/22 12:40 Currently or been in a relationship where the following occur: no concerns reported Const Orientation/consciousness: patient oriented x3 Resp Effort & Inspection: normal respiratory effort Auscultation: clear to auscultation bilaterally Cardio Jugular venous distension: no JVD Rate: regular rate Rhythm: regular rhythm Heart sounds: S1 normal heart sound present and S2 normal heart sound present Neuro General: patient oriented x3 and no focal motor deficits Extrem General: Yes full ROM Psych Appearance: grossly normal Office Procedures Flu Questionnaire Does the patient have a severe egg allergy?: No Immunizations flu vacc [id number] 6mos up(PF) 60 mcg(15 mcgx4)/0.5 mL IM syringe Performing Provider: Raine Mai MD [facility] [place] [facility] Documented (not given) by: JEREMÍAS Frias on 11/25/22 12:52 Reason Not Given: Patient Refused Assessment and Plan Assessment & Plan (1) Pre-op evaluation: Code(s): Z01.818 - Encounter for other preprocedural examination Plan: EKG and labs repeat you would and patient is medically clear for surgery. (2) Mild recurrent major depression: Code(s): F33.0 - Major depressive disorder, recurrent, mild Plan: Continue Risperdal. (3) Anxiety: Code(s): F41.9 - Anxiety disorder, unspecified Plan: Continue counseling and follow-up with psychiatry. (4) Insomnia: Code(s): G47.00 - Insomnia, unspecified Plan: Continue clonidine. Follow-up with psychiatry and counseling. Orders: Orders Complete Blood Count Auto Diff Today Z01.818 - Encounter for other preprocedural examination HIV Ab/Ag Today Z01.818 - Encounter for other preprocedural examination HCG Quantitative Today Z01.818 - Encounter for other preprocedural examination XR chest 2V Today Z01.818 - Encounter for other preprocedural examination Influenza [id number] Immunization 11/25/22 Z23 - Encounter for immunization Hemoglobin A1c Today E11.40 - Type 2 diabetes mellitus with diabetic neuropathy, unspecified, Z01.818 - Encounter for other preprocedural examination Prothrombin Time INR Today Z01.818 - Encounter for other preprocedural examination Partial Thromboplastin Time Today Z01.818 - Encounter for other preprocedural examination UA CC w/rflx Micro + Cult Today Z01.818 - Encounter for other preprocedural examination ECG 12 lead EKG Today Z01.818 - Encounter for other preprocedural examination Comprehensive [place]. Panel Fast Today Z01.818 - Encounter for other preprocedural examination Coding Level of Care Code Est Pt Level 4 (94593) Diagnoses Pre-op evaluation Z01.818 Mild recurrent major depression F33.0 Anxiety F41.9 Insomnia G47.00 Additional Codes YENNY-7 Assessment Billing - YENNY-7 Assessment Tool: YENNY-7 Assessment 96921 ([id number]) Time Spent (min) 23
[2022-11-25 12:30] VITALS: BP 118/80; PULSE 93; O2SAT 98; BMI 29.4
== END 2022-11-25 12:53 | disposition home or self-care (01) ==
PROVIDERS: PCP Internal Medicine; Visit Provider Internal Medicine
DX: F41.9 Anxiety disorder, unspecified (principal); F33.0 Major depressive disorder, recurrent, mild; E11.40 Type 2 diabetes mellitus with diabetic neuropathy, unspecified; Z01.818 Encounter for other preprocedural examination; G47.00 Insomnia, unspecified; Z98.891 History of uterine scar from previous surgery
CPT/HCPCS: 99214

== ENCOUNTER 2022-11-26 09:27 | Outpatient (REF) | payer OTHER, SELFPAY ==
--- NOTE | ~2022-11-26 | XR_ITS ---
EXAMINATION: XR CHEST CLINICAL INFORMATION: Encounter for preprocedural examination COMPARISON: 07/31/2009 TECHNIQUE: 2 views of the chest were obtained. FINDINGS: There is no gross pneumothorax. Lung volumes are low. Heart size is normal. No pleural effusion. No focal consolidation to suggest pneumonia. Mild degenerative changes in the thoracic spine. XR/XR chest 2V IMPRESSION: No evidence of pneumonia.
--- NOTE | 2022-11-26 09:32 | ECG_ITS ---
Test Reason : PREOP Blood Pressure : / mmHG Vent. Rate : 064 BPM Atrial Rate : 064 BPM P-R Int : 164 ms QRS Dur : 086 ms QT Int : 422 ms P-R-T Axes : 027 010 009 degrees QTc Int : 435 ms Normal sinus rhythm with sinus arrhythmia Normal ECG No significant changes seen Referred By: Raine Mai Electronically Signed By:KEY HARLEY MD
[2022-11-26 10:00] LABS: MANUAL DIFF FLAG NO
[2022-11-26 10:12] LABS: Basophils Percent Auto 0.8 % (0-2); Eosinophils Absolute Auto 0.1 X10*3/uL (0.0-0.4); Eosinophils Percent Auto 2.1 % (0-4); Hematocrit 40.3 % (37.0-47.0); Hemoglobin 13.6 g/dl (12.0-16.0); Imm Gran Abs Auto 0.01 X10*3/uL (0.00-0.03); Imm Gran Pct Auto 0.3 % (0.0-0.4); Lymphocytes Absolute Auto 1.4 X10*3/uL (1.2-4.9); Lymphocytes Percent Auto 36.7 % (20-40); Mean Corpuscular HGB Conc 33.7 g/dl (31.0-35.0); Mean Corpuscular Hemoglobin 28.8 pg (27.0-33.0); Mean Corpuscular Volume 85.4 fL (80.0-98.0); Mean Platelet Volume 8.9 fL (9.4-12.3); Monocytes Absolute Auto 0.2 X10*3/uL (0.1-1.2); Monocytes Percent Auto 5.3 % (2-11); Neutrophils Absolute Auto 2.1 x10*3/uL (2.0-8.3); Neutrophils Percent Auto 54.8 % (45-73); Platelet Count 293 X10*3/uL (160-400); Red Blood Count 4.72 X10*6/uL (4.20-5.50); Red Cell Distribution Width 11.9 % (11.0-16.0); White Blood Count 3.8 X10*3/uL (4.8-10.8)
[2022-11-26 10:15] LABS: Prothrombin Time 12.4 SEC (11.1-13.3)
[2022-11-26 10:18] LABS: Partial Thromboplastin Time 32.6 SEC (26.0-36.4)
[2022-11-26 10:51] LABS: Alanine Aminotransferase 37 U/L (0-31); Albumin Level 4.4 g/dL (3.5-5.0); Alkaline Phosphatase 72 U/L (39-117); Anion Gap 15 (12-20); Aspartate Amino Transferase 28 U/L (5-31); Bilirubin Total 0.7 mg/dL (0.0-1.0); Blood Urea Nitrogen 13 mg/dL (9-16); Calcium 9.8 mg/dL (8.4-10.2); Carbon Dioxide 25 mmol/L (22-29); Chloride 106 mmol/L (96-108); Estimated Glomerular Filt Rate > 60; Glucose Fasting 90 mg/dL (60-99); HCG Quantitative 4 mIU/mL; Sodium 142 mmol/L (135-145); Total Protein 7.9 g/dL (6.5-8.0)
[2022-11-26 10:54] LABS: Estimated Average Glucose 108 mg/dL; Hemoglobin A1c % 5.4 % (<6.0)
[2022-11-26 11:11] LABS: HIV AB/AG Nonreactive (Nonreactive); HIV Num 1 0.05 S/CO (0.00-0.99)
[2022-11-26 11:12] LABS: Appearance Urine Clear; Color Urine Yellow; Glucose Urine UA Negative (Negative); Leukocyte Esterase Urine Negative (Negative); Nitrite Urine Negative (Negative); PH 5.5 (5.0-9.0); Urine Blood Negative (Negative); Urine Ketones Negative (Negative); Urine Protein Negative (Neg-Trace)
== END 2022-11-26 09:28 | disposition home or self-care (01) ==
LOC: HO.XRAY 09:27
PROVIDERS: PCP Internal Medicine; Visit Provider Internal Medicine
DX: Z01.818 Encounter for other preprocedural examination (principal); E11.40 Type 2 diabetes mellitus with diabetic neuropathy, unspecified
CPT/HCPCS: 36415; 71046; 80053; 81003; 83036; 84702; 85025; 85610; 85730; 87389; 93005

== ENCOUNTER 2022-12-26 11:19 | Emergency (ER) | payer OTHER, SELFPAY ==
[2022-12-26 12:14] VITALS: BP 133/70; PULSE 82; RESP 18; TEMP 36.4; O2SAT 98; BMI 31.1
--- NOTE | 2022-12-26 12:16 | ED.GENADULT ---
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 on clindamycin to prevent infection. She notes they are healing well. She notes days of bloating, constipation some L sided fullness no diarrhea - uses colace and senna then feels better, no vomiting, no fevers. Unsure if it is constipation or diverticulitis. MD complaint: constipation, abdominal bloating Onset (ago): day(s) (3) Location: abdomen Radiation: non-radiation Severity: mild Quality: dull Pain Consistency: intermittent Relieving factors: other (having BM) Exacerbating factors: none Associated symptoms: other (constipated, bloated) Treatments prior to arrival: other (taking stool softeners.) Related Data Home Medications Medication Instructions Recorded Confirmed clonidine HCl 0.1 mg tablet mg PO 01/03/20 11/25/22 risperidone 1 mg tablet 1 mg PO BEDTIME 01/03/20 11/25/22 Previous Rx's Medication Instructions Recorded topiramate 50 mg tablet 50 mg PO BEDTIME 90 days #90 tabs 05/21/21 cyclobenzaprine 10 mg tablet 10 mg PO BEDTIME #14 tabs 08/17/22 amoxicillin 875 mg-potassium 1 tab PO BID #14 tabs 12/26/22 clavulanate 125 mg tablet ondansetron 4 mg disintegrating 4 mg PO Q8H PRN nausea and 12/26/22 tablet vomiting #20 tabs polyethylene glycol 3350 17 17 g PO DAILY PRN constipation 12/26/22 gram/dose oral powder (ClearLax) #119 grams Allergies Allergy/AdvReac Type Severity Reaction Status Date / Time aspirin [Aspirin] Allergy Intermediate HIVES, Verified 11/25/22 12:41 rash, swelling, SOB NSAIDS (Non-Steroidal Allergy Intermediate rash and Verified 11/25/22 12:41 Anti-Inflamma facial swelling Review of Systems Review of Systems: Constitutional : No Weight loss, No Fever, No Chills ENT/Mouth : No sore throat, No Rhinorrhea Eyes: No Swelling, No Redness Cardiovascular : No Chest Pain, No SOB, NoEdema Respiratory : No Cough, No Sputum, No Wheezing Gastrointestinal : no Nausea, no Vomiting, no Diarrhea, positive abdominal Pain, No Hematochezia, No Melena, pos constipation Genitourinary : No Dysuria, No Urinary Frequency, No Hematuria, No Urgency Musculoskeletal : No joint pain, No Myalgias, No Joint Swelling Skin : No Skin Lesions, No rash Neuro : No Weakness, No Numbness, No Dizziness, No Headache Psych : No Anxiety/Panic, No Depression All other systems reviewed and are negative. [facility] Past Medical History Attestation statement: The following information was validated with the patient. Source: old records reviewed Medical History Physical exam Mild recurrent major depression Insomnia Pre-op evaluation Blurry vision Overweight Anxiety Migraines Surgical History History of hysterectomy History of foot surgery History of abdominoplasty H/O bilateral breast reduction surgery History of section Family History Family History Father No problems noted. Mother Diabetes Hypertension Paternal Grandmother Cancer Paternal Aunt Cancer Paternal Uncle Cancer Social History Social History Housing: Apartment Unable to assess alcohol history related to: Unknown Alcohol intake: current Alcohol intake frequency: holidays/special occasions only Alcohol type: beer and wine Patient Tobacco Use Status: Never used Tobacco e-Cigarette/Vaping Use: Never Used Second Hand Smoke Exposure: No service: No Current occupational status: unemployed Cognitive needs: No Hearing needs: No Vision needs: No Physical Exam ED Vital Signs: Vital Signs - 24 hr 12/26/22 12:14 Temperature 97.5 F Pulse Rate 82 Respiratory Rate 18 Blood Pressure 133/70 Pulse Oximetry 98 Oxygen Delivery Method Room Air BMI result Body Mass Index 31.1 Appearance: Alert. Oriented X3. No acute distress. Eyes: Pupils equal, round and reactive to light. ENT: Pharynx normal. Neck: Normal inspection. Neck supple. CVS: Normal heart rate and rhythm. Pulses normal. Respiratory: No respiratory distress. Breath sounds normal. Abdomen: Soft and nontender. Skin: Skin warm and dry. Normal skin color. Normal skin turgor. Extremities: No lower extremity edema. No calf ttp Neuro: Oriented X 3. No motor deficit. No sensory deficit. Course Course Course Narrative: This is an RME: Additional HPI, ROS, PE not included below will be deferred to primary provider. 52 year old female presents w/ urinary hesitancy, left flank pain, fatigue, malise, nausea, vomiting, diarrhea X few days worsening hx of diverticulitis Plan- labs, urine Medical Decision Making Medical Decision Making MDM Narrative: 52 yo female with recent breast lift now with constipation and abdominal pain she has benign exam no fevers, no vomiting is not toxic appearing - at this time given risks associated with cdiff. She will be switched to augmentin to finish course and cover for possible diverticulitis. Will start on PRN miralax. Send home with precautions Differential Diagnosis Differential Diagnoses: The differential diagnosis associated with the presentation includes constipation, diverticulitis Admission/Observation Consideration of admission/observation: Escalation of care including admission/observation considered VS and labs stable can be monitored at home with return precautions Lab Data [facility] Lab Attestation statement: I reviewed the patient's lab results. 12/26/22 12:29 12/26/22 12:29 Labs: Lab Results 12/26/22 12/26/22 Range/Units 12:24 12:29 WBC 7.6 (4.8-10.8) X10*3/uL RBC 4.41 (4.20-5.50) X10*6/uL Hgb 12.7 (12.0-16.0) g/dl Hct 38.8 (37.0-47.0) % MCV 88.0 (80.0-98.0) fL MCH 28.8 (27.0-33.0) pg MCHC 32.7 (31.0-35.0) g/dl RDW 11.9 (11.0-16.0) % Plt Count 326 (160-400) X10*3/uL MPV 8.6 L (9.4-12.3) fL Immature Gran % (Auto) 0.8 H (0.0-0.4) % Neut % (Auto) 63.3 (45-73) % Lymph % (Auto) 19.1 L (20-40) % [place] % (Auto) 7.6 (2-11) % Eos % (Auto) 8.8 H (0-4) % Baso % (Auto) 0.4 (0-2) % Lymph # (Auto) 1.5 (1.2-4.9) X10*3/uL [place] # (Auto) 0.6 (0.1-1.2) X10*3/uL Eos # (Auto) 0.7 H (0.0-0.4) X10*3/uL Baso # (Auto) 0.0 (0.0-0.2) X10*3/uL Abs Immat Gran (auto) 0.06 H (0.00-0.03) X10*3/uL Absolute Neuts (auto) 4.8 (2.0-8.3) x10*3/uL Absolute Nucleated RBC 0.000 (0.0-0.012) X10*3/uL Nucleated RBC % (auto) 0.0 (0.0-0.2) /100WBC Sodium 140 (135-145) mmol/L Potassium 3.7 (3.3-5.1) mmol/L Chloride 104 (96-108) mmol/L Carbon Dioxide 28 (22-29) mmol/L Anion Gap 12 (12-20) BUN 10 (9-16) mg/dL Creatinine 0.66 (0.5-1.4) mg/dL Estim Creat Clear Calc 98.0 Estimated GFR > 60 Random Glucose 94 (60-115) mg/dL Calcium 9.8 (8.4-10.2) mg/dL Total Bilirubin 0.4 (0.0-1.0) mg/dL AST 27 (5-31) U/L ALT 43 H (0-31) U/L Alkaline Phosphatase 72 (39-117) U/L Total Protein 7.8 (6.5-8.0) g/dL Albumin 4.1 (3.5-5.0) g/dL Lipase 46 (8-78) U/L Urine Color Yellow Urine Appearance Clear Urine pH 6.0 (5.0-9.0) Ur Specific [place] 1.015 (1.005-1.025) Urine Protein Negative (Neg-Trace) mg/dL Urine Glucose (UA) Negative (Negative) mg/dL Urine Ketones Negative (Negative) mg/dL Urine Blood Negative (Negative) Urine Nitrite Negative (Negative) Ur Leukocyte Esterase Negative (Negative) Urine Test NEGATIVE (NEGATIVE) External Record Review External record reviewed: Inpatient record Tests considered The following testing was considered but not selected: CT scan but given normal VS and labs - can be managed clinically doubt abscess or perforation Prescription Management I considered prescription management with: Antibiotic and Other Discharge Plan Discharge Clinical Impression: Constipation Qualifiers: Constipation type: drug induced constipation Qualified Code(s): K59.03 - Drug induced constipation Abdominal pain Qualifiers: Abdominal location: lower abdomen, unspecified Qualified Code(s): R10.30 - Lower abdominal pain, unspecified Patient Disposition: Home, Self-Care Instructions: Constipation (ED), Abdominal Pain (ED) Additional Instructions: stop taking clindamycin. return for worsening pain, vomiting, fevers, can add miralax in if you have issues with constipation still. take an over the counter probiotic. return for more than 6 to 8 stools a day. deje de ping clindamicina. Regrese si el dolor empeora, los v?mitos y la fiebre; puede agregar miralax si a?n tiene problemas de estre?imiento. tome un probi?mike de venta zak. regrese para hacer m?s de 6 a 8 deposiciones al d?a. Prescriptions: New amoxicillin-pot clavulanate 875-125 mg tablet 1 tab PO BID Qty: 14 0RF polyethylene glycol 3350 [ClearLax] 17 gram/dose powder 17 g PO DAILY PRN (Reason: constipation) Qty: 119 0RF ondansetron 4 mg tablet,disintegrating 4 mg PO Q8H PRN (Reason: nausea and vomiting) Qty: 20 0RF No Action topiramate 50 mg tablet 50 mg PO BEDTIME 90 Days Qty: 90 1RF risperidone 1 mg tablet 1 mg PO BEDTIME clonidine HCl 0.1 mg tablet PO cyclobenzaprine 10 mg tablet 10 mg PO BEDTIME Qty: 14 0RF Print Language: [place]
[2022-12-26 12:33] LABS: MANUAL DIFF FLAG NO
[2022-12-26 12:36] LABS: Basophils Percent Auto 0.4 % (0-2); Eosinophils Absolute Auto 0.7 X10*3/uL (0.0-0.4); Eosinophils Percent Auto 8.8 % (0-4); Hematocrit 38.8 % (37.0-47.0); Hemoglobin 12.7 g/dl (12.0-16.0); Imm Gran Abs Auto 0.06 X10*3/uL (0.00-0.03); Imm Gran Pct Auto 0.8 % (0.0-0.4); Lymphocytes Absolute Auto 1.5 X10*3/uL (1.2-4.9); Lymphocytes Percent Auto 19.1 % (20-40); Mean Corpuscular HGB Conc 32.7 g/dl (31.0-35.0); Mean Corpuscular Hemoglobin 28.8 pg (27.0-33.0); Mean Platelet Volume 8.6 fL (9.4-12.3); Monocytes Absolute Auto 0.6 X10*3/uL (0.1-1.2); Monocytes Percent Auto 7.6 % (2-11); Neutrophils Absolute Auto 4.8 x10*3/uL (2.0-8.3); Neutrophils Percent Auto 63.3 % (45-73); Platelet Count 326 X10*3/uL (160-400); Red Blood Count 4.41 X10*6/uL (4.20-5.50); Red Cell Distribution Width 11.9 % (11.0-16.0); White Blood Count 7.6 X10*3/uL (4.8-10.8)
[2022-12-26 12:37] LABS: Appearance Urine Clear; Color Urine Yellow; Glucose Urine UA Negative (Negative); Leukocyte Esterase Urine Negative (Negative); Nitrite Urine Negative (Negative); Specific Gravity - Urine 1.015 (1.005-1.025); Urine Blood Negative (Negative); Urine Ketones Negative (Negative); Urine Protein Negative (Neg-Trace)
[2022-12-26 12:38] LABS: UPreg QC Valid YES; Urine Pregnancy NEGATIVE (NEGATIVE)
[2022-12-26 12:51] LABS: Alanine Aminotransferase 43 U/L (0-31); Albumin Level 4.1 g/dL (3.5-5.0); Alkaline Phosphatase 72 U/L (39-117); Anion Gap 12 (12-20); Aspartate Amino Transferase 27 U/L (5-31); Bilirubin Total 0.4 mg/dL (0.0-1.0); Blood Urea Nitrogen 10 mg/dL (9-16); Calcium 9.8 mg/dL (8.4-10.2); Carbon Dioxide 28 mmol/L (22-29); Chloride 104 mmol/L (96-108); Estimated Glomerular Filt Rate > 60; Glucose Random 94 mg/dL (60-115); Lipase 46 U/L (8-78); Potassium 3.7 mmol/L (3.3-5.1); Sodium 140 mmol/L (135-145); Total Protein 7.8 g/dL (6.5-8.0)
== END 2022-12-26 15:37 | disposition home or self-care (01) ==
PROVIDERS: Physician Assistant; Emergency Provider Emergency Medicine; PCP Internal Medicine
DX: K59.03 Drug induced constipation (principal); K59.00 Constipation, unspecified; R10.30 Lower abdominal pain, unspecified; Z79.899 Other long term (current) drug therapy
CPT/HCPCS: 36415; 80053; 81003; 81025; 83690; 85025; 99283; 99284

== ENCOUNTER 2023-07-24 16:01 | Outpatient (AMB) | payer OTHER, SELFPAY ==
--- NOTE | 2023-07-24 16:03 | MHC.OFFWIV ---
Intake Vital Signs 07/24/23 16:04 Height 5 ft 2 in BP 132/74 Blood Pressure Location Rt brachial Position Sitting Pulse 78 Pulse Source Pulse Oximeter Temp 98.3 F Temp Source Oral Pulse Oximetry (%) 98 Intake Visit Reasons: EP Headache/ear pain Intake Note: pt is here for headache and ear pain since yesterday Patient Tobacco Use Status: Never used Tobacco Allergies aspirin [Aspirin] Allergy (Intermediate, Verified 07/24/23 16:07) HIVES, rash, swelling, SOB NSAIDS (Non-Steroidal Anti-Inflamma Allergy (Intermediate, Verified 07/24/23 16:07) rash and facial swelling Do you need a note to return to daycare/school/sports/work: No HPI HPI Comments History of Present Illness Details 53 y/o female patient who presents to walk in clinic with c/o right ear pain associated with headaches since this morning. {t has h/o chronic Migraine headaches and she has ran out of her medications. Pt reports taking Topiramate daily for Migraine prevention. [facility] Medical History Physical exam Mild recurrent major depression Insomnia Pre-op evaluation Blurry vision Overweight Anxiety Migraines Surgical History History of hysterectomy History of foot surgery History of abdominoplasty H/O bilateral breast reduction surgery History of section Family History Father No problems noted. Mother Diabetes Hypertension Paternal Grandmother Cancer Paternal Aunt Cancer Paternal Uncle Cancer Social History Housing: Apartment Unable to assess alcohol history related to: Unknown Alcohol intake: current Alcohol intake frequency: holidays/special occasions only Alcohol type: beer and wine Patient Tobacco Use Status: Never used Tobacco e-Cigarette/Vaping Use: Never Used Second Hand Smoke Exposure: No service: No Current occupational status: unemployed Cognitive needs: No Hearing needs: No Vision needs: No Review of Systems Const All systems reviewed & are unremarkable except as noted in HPI and below Physical Exam Vital Signs: Last Vital Signs Temp 98.3 F 07/24/23 16:04 Pulse 78 07/24/23 16:04 BP 132/74 07/24/23 16:04 Pulse Ox 98 07/24/23 16:04 Const General: no acute distress; No comfortable Nutritional Appearance: obese Orientation/consciousness: patient oriented x3 HEENT Head: Yes normocephalic Ears: external ears normal and TM abnormal bulging on the left, erythematous on the left, with fluid behind the TM on the left and obstructed by cerumen on the right General nose exam: Abnormal mucous membranes and turbinates present boggy and erythematous Face and sinus: Yes sinuses nontender Mouth: moist mucous membranes Throat: Yes posterior oropharynx normal Resp Effort & Inspection: normal respiratory effort Auscultation: clear to auscultation bilaterally, no crackles, no rales, no rhonchi and no wheezes Cardio Rate: regular rate Rhythm: regular rhythm Neuro General: patient oriented x3, gait normal and moves all extremities Psych Speech and movement: Normal speech and movement present Office Procedures Cerumen Removal From which ear canal was the cerumen removed: right Removal: irrigation Notes: patient tolerated procedure well [id number] Irrigation/Lavage Assessment & Plan Assessment & Plan (1) Migraines: Code(s): G43.909 - Migraine, unspecified, not intractable, without status migrainosus Qualifiers: Intractability: not intractable Migraine type: chronic without aura Status migrainosus presence: without status migrainosus Qualified Code(s): G43.709 - Chronic migraine without aura, not intractable, without status migrainosus Plan: - Will refill Topiramate - Prescribed Imitrex 50 mg - Rest in a quite and Dark room - Take Imitrex with Acetaminophen. (2) Cerumen impaction: Code(s): H61.20 - Impacted cerumen, unspecified ear Qualifiers: Laterality: right Qualified Code(s): H61.21 - Impacted cerumen, right ear Plan: - Ordered Ear lavage in office with no relief. - Prescribed Debrox for 7 days. - Acetaminophen for pain relief. Medications: New sumatriptan succinate (Imitrex) Take 1 tab at onset of headache; if no relief may repeat 1 tab after at least 2 hrs; max = 4 tabs/24 hr PO 20 tabs 0RF sumatriptan succinate (Imitrex) Take 1 tab at onset of headache; if no relief may repeat 1 tab after at least 2 hrs; max = 3 tabs/24 hr PO 20 tabs 0RF carbamide peroxide 6.5% (Debrox) 5 drps otic (ears) BID 7 days 15 mL 0RF H61.21 - Impacted cerumen, right ear Refilled topiramate 50 mg PO BEDTIME 90 days 90 tabs 0RF G43.709 - Chronic migraine without aura, not intractable, without status migrainosus Coding Level of Care Code Est Pt Level 3 (10208) Diagnoses Chronic migraine without aura without status migrainosus, not intractable G43.709 Intractability: not intractable Migraine type: chronic without aura Status migrainosus presence: without status migrainosus Impacted cerumen of right ear H61.21 Laterality: right CPT Codes Office Procedure - CPT: 78518-Wvs Irrigation/Lavage ([id number]) Time Spent (min) 15
[2023-07-24 16:04] VITALS: BP 132/74; PULSE 78; TEMP 36.8; O2SAT 98
== END 2023-07-24 16:41 | disposition home or self-care (01) ==
PROVIDERS: PCP Internal Medicine; Visit Provider Nurse Practitioner Family
DX: G43.709 Chronic migraine without aura, not intractable, without status migrainosus (principal); H61.21 Impacted cerumen, right ear
CPT/HCPCS: 69209; 99213

== ENCOUNTER 2023-09-29 15:47 | Outpatient (AMB) | payer OTHER, SELFPAY ==
[2023-09-29 15:53] VITALS: BP 126/80; BMI 29.8
--- NOTE | 2023-09-29 15:53 | A.OFFPC_ITS ---
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 Accompanied by: Self / Same As Patient Allergies aspirin [Aspirin] Allergy (Intermediate, Verified 09/29/23 16:02) HIVES, rash, swelling, SOB NSAIDS (Non-Steroidal Anti-Inflamma Allergy (Intermediate, Verified 09/29/23 16:02) rash and facial swelling Medication List - Last Reconciled 09/29/23 by Raine Mai MD clonidine HCl mg PO risperidone 1 mg PO BEDTIME sumatriptan succinate (Imitrex) Take 1 tab at onset of headache; if no relief ma y repeat 1 tab after at least 2 hrs; max = 3 tabs/24 hr PO topiramate 50 mg PO BEDTIME 90 days Tobacco use date assessed: 09/29/23 Dental Screening Dental Screen Date: 09/29/23 Did you have a dental visit in the last 12 months?: Yes Did you have a dental problem in the last 6 months where you did not have access to dental care?: No Was dental information given to patient?: Patient has dentist HPI HPI Comments History of Present Illness Details This is a 53-year-old female with mild recurrent major depression that comes for her physical exam. Depression stable with medications and this is follow by Psychiatry. Mammogram done less than a year ago was normal. Has not had a colonoscopy and will be referred. No need for Pap smear due to hysterectomy. Complains of chest pain that happens at rest and I will order EKG. Also complains of some memory loss and will be referred to Neurology. Also has constipation with less than 3 bowel movements per week and is asking for medication. [facility] Medical History (Updated 09/29/23 @ 16:37 by Raine Mai MD) Physical exam Mild recurrent major depression Insomnia Pre-op evaluation Blurry vision Overweight Anxiety Migraines Surgical History History of hysterectomy History of foot surgery History of abdominoplasty H/O bilateral breast reduction surgery History of section Family History Father No problems noted. Mother Diabetes Hypertension Paternal Grandmother Cancer Paternal Aunt Cancer Paternal Uncle Cancer Social History Housing: Apartment Unable to assess alcohol history related to: Unknown Alcohol intake: current Alcohol intake frequency: holidays/special occasions only Alcohol type: beer and wine Patient Tobacco Use Status: Never used Tobacco e-Cigarette/Vaping Use: Never Used Second Hand Smoke Exposure: No service: No Current occupational status: unemployed Cognitive needs: No Hearing needs: No Vision needs: No Questionnaire PHQ-9 Over the last 2 weeks, how often have you been bothered by any of the following problems? 1. Little interest or pleasure in doing things: not at all 2. Feeling down, depressed, or hopeless: several days 3. Trouble falling or staying asleep, or sleeping too much: several days 4. Feeling tired or having little energy: not at all 5. Poor appetite or overeating: several days 6. Feeling bad about yourself - or that you are a failure or have let yourself or your family down: not at all 7. Trouble concentrating on things, such as reading the newspaper or watching television: not at all 8. Moving or speaking so slowly that other people could have noticed. Or the opposite - being so fidgety or restless that you have been moving around a lot more than usual: not at all 9. Thoughts that you would be better off or of hurting yourself in some way: not at all Total score: 3 Depression Screening Interpretation: Positive Depression Screening Follow-up: Existing condition, In treatment, Community Mental Health Worker F/U and Follow- up Visit Requested Depression Screening Done: Yes 49039 - PHQ-9 Billing: Yes Source: Developed by Drs. Keith Johnson, Beronica Ravi, Evaristo Pandey and colleagues, with an educational geo from [employer]. Thrive Questionnaire Date Thrive assessed: 09/29/23 I am a: Patient What is your living situation today?: I have a steady place to live Within the past 12 months, did the food you bought not last and you didn't have the money to get more?: Never true Within the past 12 months, did you worry whether your food would run out before you got money to buy more?: Never true Do you have trouble paying for medicines?: No Do you have trouble getting transportation to medical appointments?: No Do you have trouble paying your heating and electricity bill?: No Do you have trouble taking care of your child, family member or friend?: No Do you have trouble with day-to-day activities such as bathing, preparing meals, shopping, managing finances, etc.?: No Are you currently unemployed and looking for a job?: No Are you interested in more education?: No Please select the resources that you would like help with: None Currently or been in a relationship where the following occur: No concerns reported THRIVE Score: 0 AUDIT C Alcohol Use Questionnaire (AUDIT-C) 1. How often do you have a drink containing alcohol?: Monthly or less 2. How many drinks containing alcohol do you have on a typical day when you are drinking?: 1 or 2 3. How often do you have six or more drinks on one occasion?: Never Total Score: 1 Score Reviewed/Action Taken: No YENNY-7 AMB Questionnaire YENNY-7 Date YENNY - 7 assessed: 09/29/23 Feeling nervous, anxious, or on edge: 1 = Several days Not being able to stop or control worryin = Not at all Worrying too much about different things: 1 = Several days Trouble relaxin = Not at all Being so restless that it is hard to sit still: 0 = Not at all Becoming easily annoyed or irritable: 2 = More than half the days Feeling afraid as if something awful might happen: 0 = Not at all Total YENNY-7 score (0-4 normal; 5-9 mild; 10-14 moderate; 15-21 severe): 4 Source: Developed by Drs. Keith Johnson, Beronica Ravi, Evaristo Pandey and colleagues, with an educational geo from [employer]. YENNY-7 Assessment Billing YENNY-7 Assessment Tool: YENNY-7 Assessment 98364 Review of Systems Const All systems reviewed & are unremarkable except as noted in HPI and below Card Reports chest pain at rest, Denies chest pain with activity, Denies edema, Denies irregular heart rhythm, Denies claudication, Denies dyspnea, Denies dyspnea on exertion, Denies orthopnea, Denies paroxysmal nocturnal dyspnea and Denies slow heart rate Resp Denies cough, Denies dyspnea and Denies dyspnea on exertion GI Denies abdominal pain, Denies change in bowel habits, Denies excessive flatus, Denies nausea and Denies vomiting Denies urinary incontinence, Denies urinary hesitancy and Denies urinary urgency Musc Denies abnormal gait, Denies atrophy, Denies deformity and Denies limited range of motion Skin/Breast Denies bleeding lesions, Denies changing lesions and Denies rash Neuro Denies abnormal gait, Denies lack of coordination and Reports memory loss Psych Reports memory loss Physical exam (Primary Care) Vital Signs: Last Vital Signs BP 126/80 09/29/23 15:53 BMI result Body Mass Index 29.8 Tobacco/Smoking Status: Tobacco use Status Tobacco use date assessed 09/29/23 09/29/23 16:00 Patient Tobacco Use Status Never used Tobacco 09/29/23 16:00 e-Cigarette/Vaping Use Never Used 09/29/23 16:00 PHQ-9: PHQ-9 Score PHQ-9: Total score 3 09/29/23 16:08 Depression Screening Interpretation: Positive Depression Screening Follow-up: Existing condition, In treatment, Community Mental Health Worker F/U and Follow- up Visit Requested Thrive Assessment: Date of Thrive Assessment Date Thrive assessed 09/29/23 09/29/23 16:00 Currently or been in a relationship where the following occur: No concerns reported [facility] Head: Yes normal to inspection, Yes normocephalic and Yes atraumatic Ears: external ears normal Eyes General: appearance normal, both eyes and all related structures Eyelids: Yes eyelids normal Conjunctivae: conjunctivae normal Neck Neck: Yes normal visual inspection and Yes supple Resp Effort & Inspection: normal respiratory effort Auscultation: clear to auscultation bilaterally Cardio Jugular venous distension: no JVD Rate: regular rate Rhythm: regular rhythm Heart sounds: S1 normal heart sound present and S2 normal heart sound present GI Inspection: Yes normal to inspection Palpation (GI): Soft to palpation and nontender Auscultation: normal bowel sounds Skin General skin exam: no rashes or lesions noted Neuro General: no focal motor deficits Extrem General: Yes full ROM Psych Appearance: grossly normal Assessment and Plan Assessment & Plan (1) Physical exam: Code(s): Z00.00 - Encounter for general adult medical examination without abnormal findings Plan: Repeat in a year. (2) Mild recurrent major depression: Code(s): F33.0 - Major depressive disorder, recurrent, mild Plan: Continue Risperdal. Follow-up with psychiatry. (3) Memory loss: Code(s): R41.3 - Other amnesia Plan: Referred to neurology. Labs ordered. (4) Chest pain: Code(s): R07.9 - Chest pain, unspecified Plan: EKG ordered. (5) Chronic idiopathic constipation: Code(s): K59.04 - Chronic idiopathic constipation Plan: Start lactulose as needed. Orders: Orders ECG 12 lead EKG Today R07.9 - Chest pain, unspecified Vitamin B12 and Folate Today E53.8 - Deficiency of other specified B group vitamins, R41.3 - Other amnesia Thyroid Stimulating Hormone Today R41.3 - Other amnesia Lipid Panel Today Z00.00 - Encounter for general adult medical examination without abnormal findings Comprehensive [place]. Panel Fast Today Z00.00 - Encounter for general adult medical examination without abnormal findings Complete Blood Count Auto Diff Today R41.3 - Other amnesia Referrals Neurology Referral R41.3 - Other amnesia Open Access Screening Colonoscopy Referral Z12.11 - Encounter for screening for malignant neoplasm of colon Coding Level of Care Code Est Pt Level 4 (30287) Est Pt Prev Care 40-64y(43596) Diagnoses Physical exam Z00.00 Mild recurrent major depression F33.0 Memory loss R41.3 Chest pain R07.9 Chronic idiopathic constipation K59.04 Additional Codes YENNY-7 Assessment Billing - YENNY-7 Assessment Tool: YENNY-7 Assessment 20245 ([id number]) Time Spent (min) 35
== END 2023-09-29 16:14 | disposition home or self-care (01) ==
PROVIDERS: PCP Internal Medicine; Visit Provider Internal Medicine
DX: Z00.00 Encounter for general adult medical examination without abnormal findings (principal); R07.9 Chest pain, unspecified; K59.04 Chronic idiopathic constipation; F33.0 Major depressive disorder, recurrent, mild; R41.3 Other amnesia
CPT/HCPCS: 99214; 99396

== ENCOUNTER 2023-12-16 16:00 | Outpatient (AMB) | payer OTHER, SELFPAY ==
--- NOTE | 2023-12-16 16:01 | MHC.OFFWIV ---
Intake Vital Signs 12/16/23 16:04 Height 5 ft 2 in Weight 161 lb BMI 29.4 BP 122/80 Blood Pressure Location Rt brachial Position Sitting Pulse 93 Pulse Source Pulse Oximeter Pulse Oximetry (%) 97 Oxygen Delivery Method Room Air Intake Visit Reasons: EP- Tension headache Intake Note: Patient here for headache and dizziness that has been present for a couple of days. Patient Tobacco Use Status: Never used Tobacco Allergies aspirin [Aspirin] Allergy (Intermediate, Verified 12/16/23 16:04) HIVES, rash, swelling, SOB NSAIDS (Non-Steroidal Anti-Inflamma Allergy (Intermediate, Verified 12/16/23 16:04) rash and facial swelling Do you need a note to return to daycare/school/sports/work: No HPI HPI Comments History of Present Illness Details She presents to office with headache She said pounding feeling mainly on L side that radiates to back of head + light and sound sensitivity No trauma, injury or syncope She suffers from migraines and takes Topamax + chills with dizziness Blurry vision Never had a headache this bad before; rates her pain as 10/10 Tried topamax lastnight without relief. Can't take NSAIDs She drove here [facility] Medical History Physical exam Mild recurrent major depression Insomnia Pre-op evaluation Blurry vision Overweight Anxiety Migraines Surgical History History of hysterectomy History of foot surgery History of abdominoplasty H/O bilateral breast reduction surgery History of section Family History Father No problems noted. Mother Diabetes Hypertension Paternal Grandmother Cancer Paternal Aunt Cancer Paternal Uncle Cancer Social History Housing: Apartment Unable to assess alcohol history related to: Unknown Alcohol intake: current Alcohol intake frequency: holidays/special occasions only Alcohol type: beer and wine Patient Tobacco Use Status: Never used Tobacco e-Cigarette/Vaping Use: Never Used Second Hand Smoke Exposure: No service: No Current occupational status: unemployed Cognitive needs: No Hearing needs: No Vision needs: No Review of Systems Const Denies chills, Denies fever(s) and Reports headache(s) Eyes Reports blurry vision and Denies diplopia ENT Reports dizziness, Denies otalgia, Reports headache(s), Denies nasal discharge and Denies sore throat Card Denies chest pain and Denies syncope (states near syncope) Resp Denies cough GI Denies vomiting Neuro Reports dizziness, Denies syncope (states near syncope) and Reports headache(s) Physical Exam Vital Signs: Last Vital Signs Pulse 93 12/16/23 16:04 BP 122/80 12/16/23 16:04 Pulse Ox 97 12/16/23 16:04 Oxygen Delivery Method Room Air 12/16/23 16:04 BMI result Body Mass Index 29.4 General: Non-toxic, NAD. Speaking full sentences. Skin: Warm dry throughout Eye: EOMI, PERRL HENT: Airway patent. Uvula midline. No pharyngeal erythema or edema. No OFFICE HELPER CLERICAL. Bilateral canals clear. TM non-erythematous, non-bulging. No TM perforation or hemotympanum noted. Respiratory: CTA bilaterally. No wheezes, rales or rhonchi Cardiac: RRR. No murmur MSK: Full ROM extremities. Neurology: A/O x 3. CN 2-12 grossly intact. Negative pronator drift. Able to maintain balance with rhomberg. No aphasia or facial droop. Gait without abnormality Psych: Good mood and affect Assessment & Plan Assessment & Plan (1) Headache: Code(s): R51.9 - Headache, unspecified Qualifiers: Headache type: unspecified Headache chronicity pattern: acute headache Intractability: intractable Qualified Code(s): R51.9 - Headache, unspecified Plan: Patient seen and evaluated. 11/19 intractable headache No neuro deficit on exam Expect called to [facility] and pt will have bring her Patient gave verbal understanding and had no additional questions or concerns at time of discharge All questions answered MA helped interpret entire visit per pt request without additional concerns. Coding Level of Care Code Est Pt Level 4 (53377) Diagnoses Acute intractable headache, unspecified headache type R51.9 Headache type: unspecified Headache chronicity pattern: acute headache Intractability: intractable
[2023-12-16 16:04] VITALS: BP 122/80; PULSE 93; O2SAT 97; BMI 29.4
== END 2023-12-16 16:19 | disposition home or self-care (01) ==
PROVIDERS: PCP Internal Medicine; Visit Provider Physician Assistant
DX: R51.9 Headache, unspecified (principal)

== ENCOUNTER → 2023-12-16 16:00 | Outpatient (BNVA) | payer OTHER, SELFPAY | PROVIDERS: PCP Internal Medicine; Visit Provider Physician Assistant | DX: R51.9 Headache, unspecified (principal) | CPT/HCPCS: 99212 ==

== ENCOUNTER 2024-05-31 15:08 | Outpatient (AMB) | payer OTHER, SELFPAY ==
--- NOTE | 2024-05-31 15:16 | AM.OFFWIN_ITS ---
Intake Vital Signs 05/31/24 15:23 BP 140/80 H Blood Pressure Location Rt brachial Position Sitting Pulse 88 Pulse Source Pulse Oximeter Pulse Oximetry (%) 97 Oxygen Delivery Method Room Air Intake Visit Reasons: EP High BP this morning 147/91, headache, nausea Intake Note: Patient here for elevated BP, headaches and nausea that has been present on and off for about 1 week. 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 Pt reports in 2 different occasions, she checked Her BP at [facility] and it was elevated (Systolic 147-149 and Diastolic 88-97). She was also told by her Psychiatrist that Her Blood pressure Reading last week was elevated and needed to F/U with her PCP. [facility] Medical History (Updated 05/31/24 @ 15:51 by Altagracia Bliss NP) Elevated blood pressure reading in office without diagnosis of hypertension Physical exam Mild recurrent major depression Insomnia Pre-op evaluation Blurry vision Overweight Anxiety Migraines Surgical History History of hysterectomy History of foot surgery History of abdominoplasty H/O bilateral breast reduction surgery History of section Family History Father No problems noted. Mother Diabetes Hypertension Paternal Grandmother Cancer Paternal Aunt Cancer Paternal Uncle Cancer Social History Housing: Apartment Unable to assess alcohol history related to: Unknown Alcohol intake: current Alcohol intake frequency: holidays/special occasions only Alcohol type: beer and wine Patient Tobacco Use Status: Never used Tobacco e-Cigarette/Vaping Use: Never Used Second Hand Smoke Exposure: No service: No Current occupational status: unemployed Cognitive needs: No Hearing needs: No Vision needs: No Review of Systems Const All systems reviewed & are unremarkable except as noted in HPI and below Physical Exam Vital Signs: Last Vital Signs Pulse 88 05/31/24 15:23 BP 140/80 H 05/31/24 15:23 Pulse Ox 97 05/31/24 15:23 Oxygen Delivery Method Room Air 05/31/24 15:23 Const General: no acute distress Nutritional Appearance: overweight Orientation/consciousness: patient oriented x3 Resp Effort & Inspection: normal respiratory effort Auscultation: clear to auscultation bilaterally Cardio Heart sounds: S1 normal heart sound present and S2 normal heart sound present Neuro General: patient oriented x3, gait normal and moves all extremities Psych Speech and movement: Normal speech and movement present Assessment & Plan Assessment & Plan (1) Elevated blood pressure reading in office without diagnosis of hypertension: Code(s): R03.0 - Elevated blood-pressure reading, without diagnosis of hypertension Plan: Advised Lifestyle changes: - The DASH: eating plan emphasizes fruits, vegetables, whole grains, and low-fat dairy, while reducing sodium intake. - Reduce salt consumption by reading food labels, preparing meals at home, and choosing low-sodium options. - Find healthy ways to cope with stress, such as relaxation techniques, meditation. - 30 minutes of moderate-intensity exercise most days of the week. - Healthy weight. Advised to Monitor blood pressure regularly at home once or twice Day. Keep A Log and RTC for BP check in 7 days (Next friday). Coding Level of Care Code Est Pt Level 4 (08066) Diagnoses Elevated blood pressure reading in office without diagnosis of hypertension R03.0 Time Spent (min) 20
[2024-05-31 15:23] VITALS: BP 140/80; PULSE 88; O2SAT 97
== END 2024-05-31 16:08 | disposition home or self-care (01) ==
PROVIDERS: PCP Internal Medicine; Visit Provider Nurse Practitioner Family
DX: R03.0 Elevated blood-pressure reading, without diagnosis of hypertension (principal)

== ENCOUNTER → 2024-05-31 15:08 | Outpatient (BNVA) | payer OTHER, SELFPAY | PROVIDERS: PCP Internal Medicine; Visit Provider Nurse Practitioner Family | DX: R03.0 Elevated blood-pressure reading, without diagnosis of hypertension (principal) | CPT/HCPCS: 99212 ==

== ENCOUNTER 2024-08-16 10:35 | Outpatient (AMB) | payer OTHER, SELFPAY ==
[2024-08-16 10:45] VITALS: BP 120/82; PULSE 64; TEMP 36.6; O2SAT 97; BMI 31.7
--- NOTE | 2024-08-16 10:45 | AM.OFFWIN_ITS ---
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 ON LICENSE OF [facility] Medical History (Updated 08/16/24 @ 11:31 by Altagracia Bliss NP) Contusion of lower back Elevated blood pressure reading in office without diagnosis of hypertension Physical exam Mild recurrent major depression Insomnia Pre-op evaluation Blurry vision Overweight Anxiety Migraines Surgical History History of hysterectomy History of foot surgery History of abdominoplasty H/O bilateral breast reduction surgery History of section Family History Father No problems noted. Mother Diabetes Hypertension Paternal Grandmother Cancer Paternal Aunt Cancer Paternal Uncle Cancer Social History Housing: Apartment Unable to assess alcohol history related to: Unknown Alcohol intake: current Alcohol intake frequency: holidays/special occasions only Alcohol type: beer and wine Patient Tobacco Use Status: Never used Tobacco e-Cigarette/Vaping Use: Never Used Second Hand Smoke Exposure: No service: No Current occupational status: unemployed Cognitive needs: No Hearing needs: No Vision needs: No Review of Systems Const All systems reviewed & are unremarkable except as noted in HPI and below Physical Exam Vital Signs: Last Vital Signs Temp 97.9 F 08/16/24 10:45 Pulse 64 08/16/24 10:45 BP 120/82 08/16/24 10:45 Pulse Ox 97 08/16/24 10:45 Oxygen Delivery Method Room Air 08/16/24 10:45 BMI result Body Mass Index 31.7 Const General: no acute distress; No comfortable Nutritional Appearance: overweight Orientation/consciousness: patient oriented x3 Back/Spine/Pelvis Back: back tenderness Thoracic/Lumbar Spine: thoraco-lumbar spasm and lumbar spinal tenderness at L4 and at L5 Back/spine/pelvis image: 2 1. Large Contusion erythematous and TTP. Neuro General: patient oriented x3 Psych Speech and movement: Normal speech and movement present Assessment & Plan Assessment & Plan (1) Contusion of lower back: Code(s): S30.0XXA - Contusion of lower back and pelvis, initial encounter Qualifiers: Encounter type: initial encounter Qualified Code(s): S30.0XXA - Contusion of lower back and pelvis, initial encounter Plan: Ordered Xray Ice/Hot Acetaminophen for pain relief Rest Ordered Flexeril and Lido patches. Orders: Orders 2 XR lumbar spine 4V min Today S30.0XXA - Contusion of lower back and pelvis, initial encounter Medications: New 2 acetaminophen 1,000 mg (2 x 500 mg) PO Q6H 30 caps 0RF pain S30.0XXA - Contusion of lower back and pelvis, initial encounter lidocaine 5% leave on most painful area for up to 12 hrs 1 patch topical DAILY 30 ea 0RF S30.0XXA - Contusion of lower back and pelvis, initial encounter cyclobenzaprine 10 mg PO BEDTIME 20 tabs 0RF S30.0XXA - Contusion of lower back and pelvis, initial encounter Coding Level of Care Code Est Pt Level 4 (72045) Diagnoses Contusion of lower back, initial encounter S30.0XXA Encounter type: initial encounter Time Spent (min) 20
== END 2024-08-16 11:42 | disposition home or self-care (01) ==
PROVIDERS: PCP Internal Medicine; Visit Provider Nurse Practitioner Family
DX: S30.0XXA Contusion of lower back and pelvis, initial encounter (principal)

== ENCOUNTER 2024-08-16 10:35 | Outpatient (REF) | payer OTHER, SELFPAY ==
--- NOTE | ~2024-08-16 | XR_ITS ---
Exam: 5 view L-spine TECHNIQUE: AP, lateral, lateral spot, and bilateral oblique views of the lumbar spine. INDICATION: S30.0XXA - Contusion of lower back and pelvis, initial encounter, lower mid back pain after falling 3 days ago Prior: None FINDINGS: There are 5 nonrib-bearing lumbar segments. Vertebral body height and alignment is preserved. Small anterior osteophytes are present at T11-12. Large anterior osteophytes are present anteriorly at L2-3 and L3-4. No pars defects are present. XR/XR lumbar spine 4V min IMPRESSION: Mild degenerative change. Electronically signed by: Saud Loredo MD 08/16/2024 12:34 PM EDT
== END 2024-08-16 10:36 | disposition home or self-care (01) ==
LOC: HO.HMGCX 10:35
PROVIDERS: PCP Internal Medicine; Visit Provider Nurse Practitioner Family
DX: S30.0XXA Contusion of lower back and pelvis, initial encounter (principal); W19.XXXA Unspecified fall, initial encounter; Y93.9 Activity, unspecified; Y92.9 Unspecified place or not applicable; Y99.9 Unspecified external cause status
CPT/HCPCS: 72110; 99212

== ENCOUNTER → 2024-08-16 11:35 | Outpatient (BNV) | payer OTHER, SELFPAY | PROVIDERS: PCP Internal Medicine; Visit Provider Radiology Diagnostic Radiology | DX: S30.0XXA Contusion of lower back and pelvis, initial encounter (principal) | CPT/HCPCS: 72110 ==

== ENCOUNTER 2024-09-13 14:38 | Emergency (ER) | payer OTHER, SELFPAY ==
--- NOTE | ~2024-09-13 | XR_ITS ---
EXAMINATION: X-ray tibia and fibula left side. CLINICAL INFORMATION: Injury. Pain. TECHNIQUE: AP and lateral views.. COMPARISON: December 20, 2010. FINDINGS: No acute cortical disruption. No lytic or blastic lesions. No metallic or radiopaque foreign body. No subcutaneous edema. XR/XR tibia fibula LT 2V IMPRESSION: No acute fracture. Electronically signed by: Andrés Damian MD 09/13/2024 03:45 PM EDT
[2024-09-13 15:19] VITALS: BP 133/63; PULSE 87; RESP 18; TEMP 36.7; O2SAT 95; BMI 31.8
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
[2024-09-13] MEDS: Diphth,Pertus(ACell),Tet Adult 0.5 ML SYRINGE IM (18:08)
[2024-09-13 18:14] VITALS: BP 121/72; PULSE 85; RESP 18; TEMP 36.6; O2SAT 96
--- NOTE | 2024-09-13 18:16 | PC.NURSE ---
patient a&ox3, vss, pt c/o 10/10 LLE pain, pt given tetanus shot per order from [facility], family at bedside, call max within reach, pt awaiting ED provider evaluation.
[2024-09-13] MEDS: oxyCODONE HCl Immed Release 5 MG TABLET PO (19:02)
[2024-09-13 19:09] LABS: MANUAL DIFF FLAG NO
[2024-09-13 19:28] LABS: Hematocrit 37.9 % (37.0-47.0); Hemoglobin 12.8 g/dl (12.0-16.0); Imm Gran Abs Auto 0.03 X10*3/uL (0.00-0.03); Imm Gran Pct Auto 0.5 % (0.0-0.4); Lymphocytes Absolute Auto 1.9 X10*3/uL (1.2-4.9); Mean Corpuscular HGB Conc 33.8 g/dl (31.0-35.0); Mean Corpuscular Hemoglobin 28.8 pg (27.0-33.0); Mean Corpuscular Volume 85.2 fL (80.0-98.0); NRBC Abs Auto 0.000 X10*3/uL (0.0-0.012); NRBC Pct Auto 0.0 /100WBC (0.0-0.2); Platelet Count 289 X10*3/uL (160-400); Red Blood Count 4.45 X10*6/uL (4.20-5.50); White Blood Count 6.6 X10*3/uL (4.8-10.8)
[2024-09-13 19:31] LABS: Alanine Aminotransferase 55 U/L (0-31); Albumin Level 4.4 g/dL (3.5-5.0); Alkaline Phosphatase 86 U/L (39-117); Anion Gap 10 (12-20); Aspartate Amino Transferase 32 U/L (5-31); Blood Urea Nitrogen 14 mg/dL (9-16); Calcium 9.2 mg/dL (8.4-10.2); Carbon Dioxide 29 mmol/L (22-29); Chloride 106 mmol/L (96-108); Creatinine Clr Calc Pharmacy 92.7; Estimated Glomerular Filt Rate > 60; Magnesium 2.2 mg/dL (1.6-2.6); Potassium 3.6 mmol/L (3.3-5.1); Sodium 141 mmol/L (135-145); Total Protein 7.6 g/dL (6.5-8.0)
[2024-09-13 21:13] VITALS: BP 133/61; PULSE 64; RESP 14; TEMP 36; O2SAT 97
[2024-09-13 21:23] VITALS: BP 133/61; PULSE 64; RESP 14; TEMP 36; O2SAT 97
== END 2024-09-13 21:23 | disposition home or self-care (01) ==
PROVIDERS: Physician Assistant Medical; Emergency Provider Emergency Medicine; PCP Internal Medicine
DX: T24.202A Burn of second degree of unspecified site of left lower limb, except ankle and foot, initial encounter (principal); M79.605 Pain in left leg; X17.XXXA Contact with hot engines, machinery and tools, initial encounter; Y93.89 Activity, other specified; Y92.9 Unspecified place or not applicable; Y99.9 Unspecified external cause status
CPT/HCPCS: 36415; 73590; 80053; 83735; 84702; 85025; 85652; 86140; 90471; 90715; 99284

== ENCOUNTER → 2024-09-13 15:24 | Outpatient (BNV) | payer OTHER, SELFPAY | PROVIDERS: PCP Internal Medicine; Visit Provider Radiology Diagnostic Radiology | DX: S89.92XA Unspecified injury of left lower leg, initial encounter (principal); M79.605 Pain in left leg | CPT/HCPCS: 73590 ==

== ENCOUNTER 2024-10-05 15:55 | Outpatient (AMB) | payer OTHER, SELFPAY ==
[2024-10-05 16:01] VITALS: BP 126/84; PULSE 86; O2SAT 96; BMI 32.1
--- NOTE | 2024-10-05 16:01 | A.OFFPC_ITS ---
Vital Signs 10/05/24 16:01 Height 5 ft 2 in Weight 175 lb 8 oz BMI 32.1 BP 126/84 Blood Pressure Location Lt brachial Position Sitting Pulse 86 Pulse Source Pulse Oximeter Pulse Oximetry (%) 96 Oxygen Delivery Method Room Air Intake Visit Reasons: annual exam Juice Scaleman Required: No Accompanied by: Self / Same As Patient Allergies aspirin (Aspirin) Allergy (Intermediate, Verified 10/05/24 16:18) HIVES, rash, swelling, SOB NSAIDS (Non-Steroidal Anti-Inflamma Allergy (Intermediate, Verified 10/05/24 16:18) rash and facial swelling Medication List - Last Reconciled 10/05/24 by Raine Mai MD acetaminophen 1,000 mg (2 x 500 mg) PO Q6H clonidine HCl mg PO codeine sulfate 15 mg PO Q6H PRN cyclobenzaprine 10 mg PO BEDTIME doxycycline hyclate 100 mg PO BID lactulose 10 grams (15 mL) PO BEDTIME PRN 30 days lidocaine 5% 1 patch topical DAILY risperidone 1 mg PO BEDTIME sumatriptan succinate (Imitrex) Take 1 tab at onset of headache; if no relief may repeat 1 tab after at least 2 hrs; max = 3 tabs/24 hr PO topiramate 50 mg PO BEDTIME 90 days Tobacco use date assessed: 10/05/24 Dental Screening Dental Screen Date: 10/05/24 Did you have a dental visit in the last 12 months?: No Did you have a dental problem in the last 6 months where you did not have access to dental care?: No Was dental information given to patient?: No HPI HPI Comments History of Present Illness Details The patient is a 54-year-old female presenting for an annual physical examination. She has a history of constipation managed with lactulose and migraines treated with sumatriptan and Topamax. The patient reports anxiety and mild depression, for which she is seeing a counselor, and has concerns about her weight. Her family history includes diabetes and hypertension on her mother's side, and she does not smoke but drinks alcohol occasionally. She has had multiple surgeries, including a hysterectomy in 2018, right foot surgery, abdominoplasty, breast reduction, and three sections. - Mammography not up to date as of 2022 - Colon cancer screening pending - Discussed weight management strategies - No need for Pap due to hysterectomy fo r benign reasons. - Tdap vaccine up-to-date. [facility] Medical History Contusion of lower back Elevated blood pressure reading in office without diagnosis of hypertension Physical exam Mild recurrent major depression Insomnia Pre-op evaluation Blurry vision Overweight Anxiety Migraines Surgical History (Updated 10/05/24 @ 16:35 by Raine Mai MD) H/O breast augmentation History of hysterectomy History of foot surgery History of abdominoplasty H/O bilateral breast reduction surgery History of section Family History Father No problems noted. Mother Diabetes Hypertension Paternal Grandmother Cancer Paternal Aunt Cancer Paternal Uncle Cancer Social History Housing: Apartment Unable to assess alcohol history related to: Unknown Alcohol intake: current Alcohol intake frequency: holidays/special occasions only Alcohol type: beer Patient Tobacco Use Status: Never used Tobacco e-Cigarette/Vaping Use: Never Used Second Hand Smoke Exposure: No service: No Current occupational status: unemployed Cognitive needs: No Hearing needs: No Vision needs: No Questionnaire PHQ-9 Over the last 2 weeks, how often have you been bothered by any of the following problems? 1. Little interest or pleasure in doing things: several days 2. Feeling down, depressed, or hopeless: not at all 3. Trouble falling or staying asleep, or sleeping too much: not at all 4. Feeling tired or having little energy: nearly every day 5. Poor appetite or overeating: nearly every day 6. Feeling bad about yourself - or that you are a failure or have let yourself or your family down: not at all 7. Trouble concentrating on things, such as reading the newspaper or watching television: not at all 8. Moving or speaking so slowly that other people could have noticed. Or the opposite - being so fidgety or restless that you have been moving around a lot more than usual: not at all 9. Thoughts that you would be better off or of hurting yourself in some way: not at all Total score: 7 Depression Screening Interpretation: Positive Depression Screening Follow-up: Existing condition, In treatment, Community Mental Health Worker F/U and Follow- up Visit Requested Depression Screening Done: Yes 89055 - PHQ-9 Billing: Yes Source: Developed by Drs. Keith Johnson, Beronica Ravi, Evaristo Pandey and colleagues, with an educational geo from [employer]. Thrive Questionnaire Date Thrive assessed: 10/05/24 I am a: Patient What is your living situation today?: I have a steady place to live Within the past 12 months, did the food you bought not last and you didn't have the money to get more?: Often true Within the past 12 months, did you worry whether your food would run out before you got money to buy more?: Often true Do you have trouble paying for medicines?: Yes Do you have trouble getting transportation to medical appointments?: No Do you have trouble paying your heating and electricity bill?: Yes Do you have trouble taking care of your child, family member or friend?: No Do you have trouble with day-to-day activities such as bathing, preparing meals, shopping, managing finances, etc.?: No Are you currently unemployed and looking for a job?: No Are you interested in more education?: Yes Please select the resources that you would like help with: Food, Paying for medicine and Utilities Currently or been in a relationship where the following occur: No concerns reported THRIVE Score: 3 AUDIT C Alcohol Use Questionnaire (AUDIT-C) 1. How often do you have a drink containing alcohol?: Monthly or less 2. How many drinks containing alcohol do you have on a typical day when you are drinking?: 1 or 2 3. How often do you have six or more drinks on one occasion?: Monthly Total Score: 3 Score Reviewed/Action Taken: No YENNY-7 AMB Questionnaire YENNY-7 Date YENNY - 7 assessed: 10/05/24 Feeling nervous, anxious, or on edge: 3 = Nearly every day Not being able to stop or control worryin = Several days Worrying too much about different things: 1 = Several days Trouble relaxin = Several days Being so restless that it is hard to sit still: 3 = Nearly every day Becoming easily annoyed or irritable: 0 = Not at all Feeling afraid as if something awful might happen: 1 = Several days Total YENNY-7 score (0-4 normal; 5-9 mild; 10-14 moderate; 15-21 severe): 10 Source: Developed by Drs. Keith Johnson, Beronica Ravi, Evaristo Pandey and colleagues, with an educational geo from [employer]. YENNY-7 Assessment Billing YENNY-7 Assessment Tool: YENNY-7 Assessment 08321 Review of Systems Const All systems reviewed & are unremarkable except as noted in HPI and below Card Denies chest pain at rest, Denies chest pain with activity, Denies edema, Denies irregular heart rhythm, Denies claudication, Denies dyspnea, Denies dyspnea on exertion, Denies orthopnea, Denies paroxysmal nocturnal dyspnea and Denies slow heart rate Resp Denies cough, Denies dyspnea and Denies dyspnea on exertion GI Denies abdominal pain, Denies change in bowel habits, Denies excessive flatus, Denies nausea and Denies vomiting Denies urinary incontinence, Denies urinary hesitancy and Denies urinary urgency Musc Denies abnormal gait, Denies atrophy, Denies deformity and Denies limited range of motion Skin/Breast Denies bleeding lesions, Denies changing lesions and Denies rash Neuro Denies abnormal gait and Denies lack of coordination Physical exam (Primary Care) Vital Signs: Last Vital Signs Pulse 86 10/05/24 16:01 BP 126/84 10/05/24 16:01 Pulse Ox 96 10/05/24 16:01 Oxygen Delivery Method Room Air 10/05/24 16:01 BMI result Body Mass Index 32.1 Tobacco/Smoking Status: Tobacco use Status Tobacco use date assessed 10/05/24 10/05/24 16:02 Patient Tobacco Use Status Never used Tobacco 10/05/24 16:02 e-Cigarette/Vaping Use Never Used 10/05/24 16:02 PHQ-9: PHQ-9 Score PHQ-9: Total score 7 10/05/24 16:12 Depression Screening Interpretation: Positive Depression Screening Follow-up: Existing condition, In treatment, Community Mental Health Worker F/U and Follow- up Visit Requested Thrive Assessment: Date of Thrive Assessment Date Thrive assessed 10/05/24 10/05/24 16:02 Currently or been in a relationship where the following occur: No concerns reported HENMT Head: Yes normal to inspection, Yes normocephalic and Yes atraumatic Ears: external ears normal Eyes General: appearance normal, both eyes and all related structures Eyelids: Yes eyelids normal Conjunctivae: conjunctivae normal Neck Neck: Yes normal visual inspection and Yes supple Resp Effort & Inspection: normal respiratory effort Auscultation: clear to auscultation bilaterally Cardio Jugular venous distension: no JVD Rate: regular rate Rhythm: regular rhythm Heart sounds: S1 normal heart sound present and S2 normal heart sound present GI Inspection: Yes normal to inspection Palpation (GI): Soft to palpation and nontender Auscultation: normal bowel sounds Skin General skin exam: no rashes or lesions noted Neuro General: no focal motor deficits Extrem General: Yes full ROM Psych Appearance: grossly normal Coding Level of Care Code Est Pt Prev Care 40-64y(14406) Diagnoses Physical exam Z00.00 Mild recurrent major depression F33.0 Additional Codes PHQ-9 - 37434 - PHQ-9 Billing: Yes ([id number]) YENNY-7 Assessment Billing - YENNY-7 Assessment Tool: YENNY-7 Assessment 22244 ([id number]) Time Spent (min) 30 Assessment & Plan Assessment & Plan (1) Physical exam: Code(s): Z00.00 - Encounter for general adult medical examination without abnormal findings Category: Medical (2) Mild recurrent major depression: Code(s): F33.0 - Major depressive disorder, recurrent, mild Category: Medical Plan Plan Patient was informed and verbally consented to the use of an ambient scribe for clinic note documentation during this visit. 1. Constipation, unspecified K59.00 The patient is currently managing constipation with lactulose. 2. Migraine, unspecified, not intractable, without status migrainosus G43.909 Migraine management includes sumatriptan and Topamax. 3. Anxiety disorder, unspecified F41.9 The patient is experiencing anxiety and is seeing a counselor for management. 4. Depression, unspecified F32.A The patient reports mild depression and is receiving counseling. 5. Obesity, unspecified E66.9 The patient is concerned about her weight and is interested in medication for weight management. 6. Encounter for general adult medical examination without abnormal findings Z00.00 Orders: Orders MM tomosynthesis screening BI Today Z12.31 - Encounter for screening mammogram for malignant neoplasm of breast Comprehensive [place]. Panel Fast Today Z00.00 - Encounter for general adult medical examination without abnormal findings Lipid Panel Today E78.5 - Hyperlipidemia, unspecified
--- OUTSIDE RECORDS SUMMARY | 2024-10-05 16:40 | XMS_ITS | Clinical Summary ---
Author Organization [facility] Address [address] [place] [address] Phone Care Team Providers Care Pipe Line Walker Name Role Phone Raine Crow MD Primary Care Provid er Allergies Active Allergy Reactions Criticality Noted Date Comments Aspirin 09/05/2024 Nsaids (Non-Steroidal Anti-I nflammatory Drug) 09/05/2024 Medications No known medications Encounters Date Type Department Care Team Description 09/05/2024 10:09 PM EDT - 09/05/2024 10:36 PM EDT Emergency [facility] [address] [place] [address] Discharge Disposition: Home or Self Care from Last 3 Months Social History Tobacco Use Types Packs/Day Years Used Date Smoking Tobacco: Never Assessed Education Answer Date Recorded Are you interested in more education? Not on miguel e 09/05/2024 Are you concerned about learning? Not on file 09/05/2024 No 09/05/2024 No 09/05/2024 Food Answer Date Recorded Within the past 6 months we worried whether our food would run out before we got money to buy more. Never True 09/05/2024 Within the past 6 months the food we bought just didn't last and we didn't have enough money to get more. Never True Residential Stability Answer Date Recor ded What is your housing situation today? I have raymon sing 09/05/2024 How many times have you move d in the past 12 months? Zero (I did not move) 09/05/2024 Paying for Meds Answer Date Recorded Do you have trouble paying for medicines? No 09/05/2024 Paying Utility Bills Answer Date Record ed Do you have trouble paying your heating or elect ricity bill? No 09/05/2024 Transportation Answer Date Recorded Has the lack of transportati on kept you from medical appointments or from getting medications? No 09/05/2024 Digital Access Answer Date Recorded No 09/05/2024 Yes 09/05/2024 Do you have reliable internet access at home? Ye s 09/05/2024 Do you have a device (e.g., phone, tablet, computer) with a working camera? Yes 09/05/2024 Intimate Partner Violence Answer Date R ecorded Are you denied basic needs s uch as food, clothing, or medical care? No 09/05/2024 In the past 12 months have y ou been in a relationship with a person who hurts, threatens, or tries to control you? No 09/05/2024 Are you denied basic needs s uch as food, clothing, or medical care? No 09/05/2024 In the past 12 months have y ou been in a relationship with a person who hurts, threatens, or tries to control you? No 09/05/2024 Comments Unknown Sex and Gender Information Value Date Recorded Sex Assigned at Female 09/05/2024 10:22 PM EDT Legal Sex Female 9:42 PM EDT Gender Identity Female 09/05/2024 10:22 PM EDT Sexual Orientation Straight 09/05/2024 10 :22 PM EDT Last Filed Vital Signs Vital Sign Reading Time Taken Comments Blood Pressure 148/84 09/05/2024 10:03 PM EDT Pulse 76 09/05/2024 10:03 PM EDT Temperature 36.8 C (98.2 F) 09/05/2024 10:03 PM EDT Respiratory Rate 18 09/05/2024 10:03 PM EDT Oxygen Saturation 99% 09/05/2024 10:03 PM EDT Inhaled Oxygen Concentration - - Weight 77.6 kg (171 lb) 09/05/2024 10:09 PM EDT Height 157.5 cm (5' 2 ) 09/05/2024 10:09 PM EDT Body Mass Index 31.28 09/05/2024 10:09 PM EDT Plan of Treatment Health Maintenance Due Date Last Done Comments Adult Td,Tdap Booster 1972 LIPID PANEL 1972 DEPRESSION SCREENING 1984 SMOKING Hx and SMOKELESS TOB ACCO SCREENING 1985 HEPATITIS C SCREENING 1990 HIV ONE-TIME SCREENING (18-6 5 YEARS) 1990 PAP SMEAR 1993 SCREENING FOR DIABETES 07/07/2007 MAMMOGRAM 2012 COLOGUARD 2017 COLONOSCOPY 2017 COLORECTAL CANCER SCREENING 2017 FIT TEST 2017 FOBT 2017 SIGMOIDOSCOPY 2017 VIRTUAL COLONOSCOPY 2017 PNEUMOCOCCAL VACCINES (50+ y ears) (1 of 1 - PCV) 2022 ZOSTER VACCINES (1 of 2) 2022 COVID-19 VACCINE (1 - 2023-2 5 season) 2023 HEPATITIS A VACCINES Aged Out No long er eligible based on patient's age to complete this topic HIB VACCINES Aged Out No longer eligi ble based on patient's age to complete this topic MENINGOCOCCAL VACCINES (ACWY) Aged Out No longer eligible based on patient's age to complete this topic MENINGOCOCCAL VACCINES (B) Aged Out N o longer eligible based on patient's age to complete this topic Medical Devices Not on file Insurance [facility] [place] [address] [place] [address] [facility] Care Teams Pipe Line Walker Relationship Specialty Start Date End Date Raine Crow MD [address] [place] [address] PCP - General 09/05/24 Additional Source Comments The information contained in this document represents components of the legal health record. It is not the complete legal health record.[facility]
== END 2024-10-05 16:33 | disposition home or self-care (01) ==
LOC: HO.HMCH 15:56
PROVIDERS: PCP Internal Medicine; Visit Provider Internal Medicine
DX: Z00.00 Encounter for general adult medical examination without abnormal findings (principal); F33.0 Major depressive disorder, recurrent, mild

== ENCOUNTER → 2024-10-05 15:55 | Outpatient (BNVA) | payer OTHER, SELFPAY | PROVIDERS: PCP Internal Medicine; Visit Provider Internal Medicine | DX: Z00.00 Encounter for general adult medical examination without abnormal findings (principal); K59.00 Constipation, unspecified; F41.9 Anxiety disorder, unspecified; F33.0 Major depressive disorder, recurrent, mild; G43.909 Migraine, unspecified, not intractable, without status migrainosus; E66.9 Obesity, unspecified; E78.5 Hyperlipidemia, unspecified; Z68.32 Body mass index [BMI] 32.0-32.9, adult | CPT/HCPCS: 96127; 99396 ==

== ENCOUNTER 2025-01-18 13:52 | Outpatient (REF) | payer OTHER, SELFPAY ==
--- NOTE | ~2025-01-18 | XR_ITS ---
EXAMINATION: XR KNEE, LEFT CLINICAL INFORMATION: M25.562 - Pain in left knee COMPARISON: None available. TECHNIQUE: Four views of the left knee. FINDINGS: There is no joint effusion. Intercondylar tubercles are peaked. There are minute marginal osteophytes involving the tibial plateau. There is a small enthesophyte at quadriceps attachment on patella. XR/XR knee LT 4V IMPRESSION: Very minimal degenerative change. Electronically signed by: Saud Loredo MD 01/18/2025 02:57 PM NEVA JURADO
[2025-01-18 17:23] LABS: Resp Syncy Virus RNA Qual PCR NEGATIVE (Negative); SARS COV2 PCR INHOUSE NEGATIVE (Negative)
--- OUTSIDE RECORDS SUMMARY | 2025-01-18 20:18 | XMS_ITS | Clinical Summary ---
Author Organization [facility] Address [address] [place] [address] Phone Care Team Providers Care Corporate Staff Accountant Name Role Phone Raine Crow MD Primary Care Provid er Allergies Active Allergy Reactions Criticality Noted Date Comments Aspirin 09/05/2024 Nsaids (Non-Steroidal Anti-I nflammatory Drug) 09/05/2024 Medications No known medications Social History Tobacco Use Types Packs/Day Years [...] 2022 ZOSTER VACCINES (1 of 2) 2022 INFLUENZA VACCINE (#1) 2024 COVID-19 VACCINE (1 - 2024-2 6 season) 2024 RSV VACCINE (1 - 1-dose 75+ series) 07/07/2047 HEPATITIS A VACCINES Aged Out No long [...] topic Medical Devices Not on file Insurance [facility] [place] [address] [place] [address] [place] [address] [place] [address] ACO [facility]CO [facility] Care Teams Corporate Staff Accountant Relationship Specialty Start Date End Date Raine Crow MD [address] [place] [address] PCP - General 09/05/24 Additional Source Comments The information contained in this document represents components of the legal health record. It is not the complete legal health record.[facility]
== END 2025-01-18 13:53 | disposition home or self-care (01) ==
LOC: HO.HMGCX 13:52
PROVIDERS: PCP Internal Medicine; Visit Provider Physician Assistant
DX: S30.0XXA Contusion of lower back and pelvis, initial encounter (principal); M25.562 Pain in left knee; M25.462 Effusion, left knee; B34.9 Viral infection, unspecified; R09.89 Other specified symptoms and signs involving the circulatory and respiratory systems; W18.30XA Fall on same level, unspecified, initial encounter
CPT/HCPCS: 73564; 87637

== ENCOUNTER 2025-01-18 13:52 | Outpatient (AMB) | payer OTHER, SELFPAY ==
[2025-01-18 13:55] VITALS: BP 128/74; PULSE 73; TEMP 36.6; O2SAT 97; BMI 32.0
--- NOTE | 2025-01-18 13:55 | AM.OFFWIN_ITS ---
Intake Vital Signs 01/18/25 13:55 Height 5 ft 2 in Weight 175 lb BMI 32.0 BP 128/74 Blood Pressure Location Lt brachial Position Sitting Pulse 73 Pulse Source Pulse Oximeter Temp 97.9 F Temp Source Oral Pulse Oximetry (%) 97 Oxygen Delivery Method Room Air Intake Visit Reasons: EP lt knee swelling Intake Note: Patient presents c/o left knee pain/swelling x5 days. Patient also mentions vomiting & cold/chills since today. Patient Tobacco Use Status: Never used Tobacco Allergies aspirin (Aspirin) Allergy (Intermediate, Verified 01/18/25 13:57) HIVES, rash, swelling, SOB NSAIDS (Non-Steroidal Anti-Inflamma Allergy (Intermediate, Verified 01/18/25 13:57) rash and facial swelling HPI HPI Comments History of Present Illness Details Terrie Godlen, AUTOGRAPHER student is translating for the patient, she is a certified medical practice administrator and she is conducting the HPI. History of Present Illness - The patient is a 54-year-old female wh o presents for evaluation of left knee swelling and cold-like symptoms. - Regarding her left knee, she reports t hat 5 days ago, while going up stairs, s he heard a crack-like sound in her knee which then became painful and swollen. - She states she had a fall at the begin tatum of the month but did not injure anything at that time. - Walking up stairs makes it worse, touc mayra the area makes it worse. - Has not tried any Tylenol, allergic to NSAIDS, hasn't wrapped it or used ice or heat. - Regarding her other symptoms, she repo rts a one-day history of cold symptoms, chills, sore throat, and cough and nausea. - She has not had any vomiting, ear symp toms, nasal symptoms, shortness of breath, or fevers and has not tried any treatments. - She has a history of an allergy to Mot rin. - She denies a history of smoking, vapin g, asthma, or COPD. [facility] Medical History (Updated 01/18/25 @ 14:27 by Amita Johansen PA-C) Pain and swelling of left knee Pain and swelling of right knee Contusion of lower back Elevated blood pressure reading in office without diagnosis of hypertension Physical exam Mild recurrent major depression Insomnia Pre-op evaluation Blurry vision Overweight Anxiety Migraines Surgical History (Updated 10/05/24 @ 16:35 by Raine Mai MD) H/O breast augmentation History of hysterectomy History of foot surgery History of abdominoplasty H/O bilateral breast reduction surgery History of section Family History Father No problems noted. Mother Diabetes Hypertension Paternal Grandmother Cancer Paternal Aunt Cancer Paternal Uncle Cancer Social History Housing: Apartment Alcohol intake: current Alcohol intake frequency: holidays/special occasions only Alcohol type: beer Patient Tobacco Use Status: Never used Tobacco e-Cigarette/Vaping Use: Never Used Second Hand Smoke Exposure: No service: No Current occupational status: unemployed Cognitive needs: No Hearing needs: No Vision needs: No Review of Systems Narrative Review of Systems - Musculoskeletal: Reports left knee pain and swelling for five days. - Constitutional: Reports chills. Denies fever. - ENT: Reports sore throat. Denies ear or nasal symptoms. - Respiratory: Reports cough. Denies shortness of breath. - Gastrointestinal: Denies vomiting. All systems reviewed and are unremarkable except as noted in HPI Physical Exam Exam Exam: Physical Exam Physical Exam General: Cooperative, healthy appearing, comfortable, no acute distress and well developed Orientation: Patient oriented x3 Limitations: ambulates normally Head: Normal to inspection Ears: Hearing grossly normal bilaterally Face and sinus: Normal facial exam Eyes: Appearance normal, both eyes and all related structures Neck: Normal visual inspection, full ROM Respiratory: Normal respiratory effort and able to speak in complete sentences. bilateral lungs CTA Cardiac: regular rate and rhythem, normal S1 and S2 Skin: No rashes or lesions noted Neuro: Patient oriented x3, gait normal Back/spine: no TTP cervical, thoracic or lumbar spine Extremities: Left knee positive patellar ballottement, lateral knee tenderness, negative anterior and posterior drawer test, neg varus and pain with valgus joint pain but no laxity, full ROM, no skin changes. some edema of left knee vs right knee Vital Signs: Last Vital Signs Temp 97.9 F 01/18/25 13:55 Pulse 73 01/18/25 13:55 BP 128/74 01/18/25 13:55 Pulse Ox 97 12/09/25 13:55 Oxygen Delivery Method Room Air 12/09/25 13:55 BMI result Body Mass Index 32.0 Assessment & Plan Assessment & Plan (1) Pain and swelling of left knee: Code(s): M25.562 - Pain in left knee; M25.462 - Effusion, left knee Plan: Left Knee Pain and Swelling The patient presents with acute left knee pain and swelling which began after hearing a sound while going upstairs. The physical exam reveals swelling, a positive patellar ballottement test, and tenderness on lateral stress testing, suggesting a joint effusion and possible ligamentous injury. An X-ray of the left knee has been ordered to assess for acute issue or effusion. The patient's knee was wrapped with a compression bandage, and she was educated on RICE therapy (rest, ice, compression, elevation). A referral will be sent to Orthopedics for further evaluation once the X-ray results are available. The patient was informed that orthopedics may need to drain the effusion or manage it conservatively. (2) Acute viral syndrome: Code(s): B34.9 - Viral infection, unspecified Plan Acute Viral Illness The patient reports a one-day onset of chills, sore throat, and cough, consistent with a viral upper respiratory infection. A viral swab was performed. She has an allergy to Motrin. For symptomatic relief, she was advised to rest and take Tylenol 1000 mg every 8 hours. A refill for ondansetron (Zofran) was sent to her pharmacy for potential nausea. She did not require a work note. Patient was informed and verbally consented to the use of an ambient scribe for clinic note documentation during this visit. Orders: Orders SARS-CoV2/FLU/RSV Today R09.89 - Other specified symptoms and signs involving the circulatory and respiratory systems XR knee LT 4V Today M25.462 - Effusion, left knee, M25.562 - Pain in left knee Referrals Orthopedics Referral M25.462 - Effusion, left knee, M25.562 - Pain in left knee Medications: New ondansetron 4 mg PO Q8H PRN 10 tabs 0RF nausea and vomiting Refilled acetaminophen 1,000 mg (2 x 500 mg) PO Q6H 30 caps 0RF pain S30.0XXA - Contusion of lower back and pelvis, initial encounter Coding Level of Care Code Est Pt Level 5 (12261) Diagnoses Pain and swelling of left knee M25.562; M25.462 Acute viral syndrome B34.9
== END 2025-01-18 14:50 | disposition home or self-care (01) ==
PROVIDERS: PCP Internal Medicine; Visit Provider Physician Assistant
DX: M25.562 Pain in left knee (principal); M25.462 Effusion, left knee; B34.9 Viral infection, unspecified

== ENCOUNTER → 2025-01-18 14:39 | Outpatient (BNV) | payer OTHER, SELFPAY | PROVIDERS: PCP Internal Medicine; Visit Provider Radiology Diagnostic Radiology | DX: M25.562 Pain in left knee (principal) | CPT/HCPCS: 73564 ==